=== PATIENT | female | born 1980 | race Caucasian/White ===

== ENCOUNTER → 2017-06-28 15:56 | Outpatient (POV) | payer BC, SELFPAY | PROVIDERS: PCP Nurse Practitioner Family | DX: Z00.00 Encounter for general adult medical examination without abnormal findings (principal) ==

== ENCOUNTER → 2019-04-17 15:00 | Outpatient (POV) | payer BC, SELFPAY | DX: Z00.00 Encounter for general adult medical examination without abnormal findings (principal) ==

== ENCOUNTER → 2020-06-10 15:17 | Outpatient (CLI) | payer BC, SELFPAY ==
--- NOTE | 2020-06-10 15:17 | US_ITS ---
PROCEDURE: US TRANSVAGINAL CLINICAL INDICATION: abnormal vaginal bleeding Heavy painful bleeding with blood clots COMPARISON: No exams were available for comparison FINDINGS: The uterus is retroverted with an endometrial thickness of 8 mm. UTERUS: 6cm x 5cmx 4cm with a combined endometrial thickness of 7.7mm LEFT OVARY: [id number] with a volume of 2.9ml. RIGHT OVARY: [id number] with a volume of 9.5ml. Bilateral ovarian blood flow noted. No cul-de-sac fluid apparent. No adnexal mass evident. IMPRESSION: Retroverted uterus otherwise unremarkable pelvic ultrasound Dictated by: Corbin Cary MD 06/10/2020 18:08 Corbin Cary MD in OV 06/10/2020 18:08
== END ==
PROVIDERS: PCP Internal Medicine Adolescent Medicine; Visit Provider Nurse Practitioner Obstetrics & Gynecology
DX: N93.9 Abnormal uterine and vaginal bleeding, unspecified (principal)
CPT/HCPCS: 76830

== ENCOUNTER → 2020-07-15 15:12 | Outpatient (POV) | payer BC, SELFPAY | DX: Z00.00 Encounter for general adult medical examination without abnormal findings (principal) ==

== ENCOUNTER → 2020-07-29 10:06 | Outpatient (CLI) | payer BC, SELFPAY ==
[2020-07-29 10:36] LABS: Basophils # 0.1 K/mm3 (0-0.2); Basophils % 1.1 % (0.1-2.0); Eosinophils # 0.1 K/mm3 (0.0-0.4); Eosinophils % 1.2 % (0.1-12.0); Hematocrit 47.7 % (37.0-47.0); Hemoglobin 15.5 g/dL (12.2-16.2); Lymphocytes # 2.6 K/mm3 (0.7-4.5); Lymphocytes % 36.6 % (10-50); Mean Corpuscular HGB Conc 32.5 g/dL (31.8-35.4); Mean Corpuscular Hemoglobin 29.6 pg (27.0-31.2); Mean Corpuscular Volume 91.1 fl (81-99); Mean Platelet Volume 7.6 fl (7.4-10.4); Monocytes # 0.4 K/mm3 (0.1-1.0); Monocytes % 5.5 % (1.7-9.3); Neutrophils # 3.9 K/mm3 (1.8-7.8); Neutrophils % 55.6 % (37.0-80.0); Platelet Count 363 K/mm3 (142-424); Red Blood Count 5.24 M/mm3 (4.20-5.40); Red Cell Distribution Width 12.8 % (11.5-17.5)
[2020-07-29 11:13] LABS: Chloride 109 mmol/L (98-107); Sodium 139 mmol/L (136-145)
[2020-07-29 11:14] LABS: Potassium 4.9 mmoL/L (3.5-5.1)
[2020-07-29 11:16] LABS: Blood Urea Nitrogen 8 mg/dl (7-17); Estimated Glomerular Filt Rate 138 ml/min (>60); GFR (African American) 167 ML/MIN (>60)
[2020-07-29 11:17] LABS: Anion Gap 13.9 mEq/L (5-15); Calcium 9.2 mg/dl (8.4-10.2); Carbon Dioxide 21 mmol/L (22.0-30.0); Glucose 92 mg/dl (74-100)
[2020-07-29 11:53] LABS: Coronavirus 19 IgG Antibody Negative (Negative); Coronavirus 19 IgM Antibody Negative (Negative)
[2020-07-29 18:18] LABS: HCG Qualitative, Serum Negative (Negative)
== END ==
PROVIDERS: Visit Provider Nurse Practitioner Obstetrics & Gynecology
DX: Z01.818 Encounter for other preprocedural examination (principal); Z20.822 Contact with and (suspected) exposure to COVID-19; N39.0 Urinary tract infection, site not specified; N92.0 Excessive and frequent menstruation with regular cycle
CPT/HCPCS: 36415; 80048; 84703; 85025; 86328

== ENCOUNTER 2020-07-31 06:43 | Day surgery (SDC) | payer BC, SELFPAY ==
[2020-07-29 09:48] VITALS: BMI 33.0
[2020-07-31] VITALS (10 sets, daily range): BP systolic 112–129; BP diastolic 62–79; PULSE 73–94; RESP 14–84; TEMP 36.1–36.5; O2SAT 96–100
--- NOTE | 2020-07-31 08:53 | P.OP_ITS ---
Date of procedure: 07/31/20 Pre-op Diagnosis:: Menorrhagia Post-op Diagnosis:: Menorrhagia Procedure performed:: Hysteroscopy, dilation and curettage, NovaSure ablation Surgeon:: nErike Fung MD CRISIS CLINICIAN:: Other (Manolo Kuhn) Anesthesia: LMA Estimated blood loss (mL): 50 Clinical Note:: She is a 39-year-old lady who complains of extremely heavy periods. She has tried control pills as well as Mirena IUD. She has had a tubal ligation. After having discussed the risks and benefits she elected to have a NovaSure ablation. Operative findings:: She had an anteverted normal-appearing uterus. The uterus sounded to 8 cm. The endometrium appeared lush but otherwise normal. Operative note:: She was taken to the operating room where LMA anesthesia was found be adequate. She was prepped and draped in the normal sterile fashion in the lithotomy position. A weighted speculum was placed in the vagina and the anterior lip of the cervix was grasped with a tenaculum. The cervix was then dilated to approximately 6 mm. I then inserted a hysteroscope into the uterine cavity and the findings were as previously dictated. I then performed a gentle curettage with a medium curette. I then sounded the uterus and determine the length of the uterus. The uterus was was found to be 8 cm long. The endometrial cavity was 6 cm long and the width was 4.4 cm. This was placed into the NovaSure device. I then inserted the NovaSure device and determine the width of the endometrial cavity. I then ran the device through its program. I further inspected the endometrial cavity and was found to be completely charred. I then injected 30 cc of 0.5% ropivacaine at the 3:00, 5:00, 7:00, and 9:00 positions of the cervix. She tolerated procedure well and was taken to the recovery room in excellent condition. All sponge and instrument counts were correct. The estimated blood loss was less than 50 cc. Condition: stable Disposition: PACU Specimens:: Endometrial curettings Complications:: None
--- NOTE | 2020-07-31 12:07 | HMH.ANESCL ---
[facility] Anesthesia Checklist - Patient Identification Patient Identification: Arm Band - Structural Data Admitted From: Home Planned Operative Procedure/s: Hysteroscopy D & C/ Novasure Consent for Planned Operative Procedure(s) Verified: Yes Verified Documents: Surgical Consent, History and Physical - Additional verifications Anesthesia Reactions: No Hx Blood Transfusions: No Blood Transfusion Reaction: No - Airway Assessment C-Spine Mobility Assessed: Yes TMJ Mobility Assessed: Yes Dentition: Good Dentition - Neurological Assessment Level of Consciousness: Awake, Alert - Anesthesia Plan Anesthesia Risk discussed: Yes Anesthesia Plan: Verified ASA Class: II Anesthesia Type: General [facility] History Medical History: Denies:: Cancer, Diabetes Mellitus Type 1, Diabetes Mellitus Type 2, Internal Pacemaker, MRSA, Seizures *Have you ever received a pneumonia vaccine?: No *Have you received a flu vaccine this season?: Yes Other Medical History: Denies: Blood Transfusion Reaction Anesthesia experience/problems:: None Other Surgeries: Yes: Other. No: Pacemaker Amputation: No Fractures: No - *Social History Smoking Status: Current every day smoker Tobacco Type: cigarettes # Packs/Day (cigarettes): 1 Alcohol Intake: never Alcohol Intake Frequency:: holidays/special occasions only Substance Use Type: denies use *Occupational Status:: employed Housing: house Household Members: spouse *Travel in the last 8 weeks: None Family Hx:: Cancer, Hypertension
--- NOTE | 2020-07-31 12:08 | HMH.ANESI ---
[facility] Anesthesia Record Part I Intake, IV Amount: 800 Estimated blood loss (mL): 50 Urine output (mL): 0 Blood Pressure: 119/68 SaO2: 97 Pulse Rate: 84 Respiratory Rate: 14 Temperature: 97.7 F Patient is:: Awake, Drowsy Stable to PACU at:: 09:00
--- NOTE | 2020-08-03 08:18 | P.PN_ITS ---
[facility] Anesthesia Record Part II Discharge Time: 09:20 Destination: Surgical Day Care (OP Surgery) PACU nurse assessment reviewed?: Yes Patient Condition:: Good Anesthesia Complications:: None Swallowing reflex intact?: Yes Cyanosis?: No Blood Pressure: 112/70 Pulse Rate: 86 Temperature: 97.4 F Mental Status: Alert & Oriented Pain level:: 0 Nausea and/or vomitting:: None Intake, IV Amount: 0
[2020-08-03 08:19] VITALS: BP 112/70; PULSE 86; TEMP 36.3
== END 2020-07-31 10:01 | disposition home or self-care (01) ==
PROVIDERS: PCP Internal Medicine Adolescent Medicine; Visit Provider Nurse Practitioner Obstetrics & Gynecology
PROC: 0U5B8ZZ Destruction of Endometrium, Via Natural or Artificial Opening Endoscopic (ICD-10-PCS; CPT 58563; principal; 2020-07-31 08:15)
DX: N92.0 Excessive and frequent menstruation with regular cycle (principal); Z72.0 Tobacco use; Z80.9 Family history of malignant neoplasm, unspecified; Z82.49 Family history of ischemic heart disease and other diseases of the circulatory system; Z88.2 Allergy status to sulfonamides
CPT/HCPCS: 58563; 96374; J2405

== ENCOUNTER 2022-02-18 13:21 | Emergency (ER) | payer BC, SELFPAY ==
[2022-02-18 13:45] VITALS: BP 143/88; PULSE 90; RESP 16; TEMP 36.7; O2SAT 98; BMI 36.6
[2022-02-18 13:55] LABS: UTC Strep Screen (Rapid) Negative (Negative)
--- NOTE | 2022-02-18 14:10 | EXP.UTC ---
Discharge Plan Disposition Patient Disposition: Home, Self-Care Condition: Good Prescriptions Prescriptions: New azithromycin [Zithromax] 250 mg tablet 250 mg PO UD DOSE PK Qty: 6 0RF Rx Instructions: Take two (2) tablets today, then one (1) tablet days #2 thru #5 benzonatate [benzonatate] 100 mg capsule 100 mg PO TIDP PRN (Reason: Cough) Qty: 30 0RF methylprednisolone 4 mg Tablets,Dose Pack 4 mg PO DIRECTED Qty: 21 0RF No Action Digestive Advantage Advanced 10 billion cell capsule PO phentermine 37.5 mg tablet 37.5 mg PO DAILY Qty: 30 0RF Rx Instructions: must administer 30 minutes before or 1-2 hours after breakfast ascorbic acid (vitamin C) 1,000 MG tablet 1,000 mg PO DAILY cholecalciferol (vitamin D3) 25 MCG tablet 5,000 mcg PO DAILY sjhlfzui-ybli-faa-folic acid 1 EACH tablet 1 each PO DAILY vitamin F76-tzzwi acid 1 EACH tablet 1 each PO DAILY Rx Instructions: PT TAKES LIQUID FORM, UNKNOWN DOSE Referrals Follow up/Referrals: Tahir Pete MD [Primary Care Provider] - See instructions Activity Restrictions/Add. Instructions Additional Instructions/Restrictions: Drink plenty of fluids. Take tylenol or ibuprofen for pain or fever. Take the medications as directed. Follow up with your regular doctor. GO TO THE ER FOR ANY WORSENING SYMPTOMS Clinical Impressions Clinical Impression: Pharyngitis, Sinusitis Stand Alone Forms Stand Alone Forms: Work/School Release Instructions Patient Instructions: Strep Throat, Sinusitis, DI for Strep Throat Discharge ED Provider[place] [facility] [place] Stated complaint: Fever, congestion, drainage, RT ear pressure, [place] Mode of Arrival: Ambulatory Source of Information: Patient Limitations: No Limitations Time Seen by Provider: 02/18/22 14:05 HEENT Symptoms (Recalled from RN notes): Yes Resp Symptoms (Recalled from RN notes): Yes Skin Symptoms (Recalled from RN notes): No MS Symptoms (Recalled from RN notes): No Functional Status (Recalled from RN notes): n/a History of Present Illness Provider Complaint: pt comes in with c/o fever, congestion/drainage, sore throat, right ear pain, sinus pressure. symptoms began monday Related Data Home Medications Medication Instructions Recorded Confirmed ascorbic acid (vitamin C) 1,000 mg 1,000 mg PO DAILY Supplement 07/31/20 08/14/20 tablet cholecalciferol (vitamin D3) 25 5,000 mcg PO DAILY Supplement 07/31/20 08/14/20 mcg (1,000 unit) tablet stjdtkfw-rbes-bfb-folic acid 18 1 each PO DAILY Supplement 07/31/20 08/14/20 mg-0.4 mg tablet vitamin B12 500 mcg-folic acid 400 1 each PO DAILY Supplement 07/31/20 08/14/20 mcg tablet L.acidoph, paracasei,B. lactis 10 cell PO 08/14/20 08/14/20 billion cell capsule (Digestive Advantage Advanced Probiotic) Previous Rx's Medication Instructions Recorded phentermine 37.5 mg tablet 37.5 mg PO DAILY wt loss #30 tabs 09/10/20 azithromycin 250 mg tablet 250 mg PO UD DOSE PK #6 tabs 02/18/22 (Zithromax) benzonatate 100 mg capsule 100 mg PO TIDP PRN Cough #30 caps 02/18/22 methylprednisolone 4 mg tablets in 4 mg PO DIRECTED #21 tabs 02/18/22 a dose pack Allergies Allergy/AdvReac Type Severity Reaction Status Date / Time Sulfa (Sulfonamide AdvReac Unknown NA-NAUSEA Verified 02/18/22 13:48 Antibiotics) Worker's Comp Is this a Worker's Comp case?: No PFSH PFSH Social History Smoking Status: Current every day smoker tobacco type: cigarettes packs per day: 1 second hand exposure: No alcohol intake: never substance use type: denies use current occupational status: employed Travel in the last 8 weeks: None household members: spouse housing: house current occupational exposures/hazards: Yes caffeine: No ROS Obtained: Yes All systems reviewed & no additional complaints
[2022-02-18 14:45] VITALS: BP 143/88; PULSE 90; RESP 16; TEMP 36.7
[2022-02-18 15:23] LABS: Adenovirus,PCR Not Detected (NotDetected); Bordetella Pertussis Not Detected (NotDetected); Chlamydophila Pneumoniae, PCR Not Detected (NotDetected); Coronavirus 19, PCR Not Detected (NotDetected); Coronavirus 229E Not Detected (NotDetected); Coronavirus NL63 Not Detected (NotDetected); Coronavirus OC43 Not Detected (NotDetected); Coronovirus HKU1,PCR Not Detected (NotDetected); Human Metapneumovirus Not Detected (NotDetected); Influenza A, PCR Not Detected (NotDetected); Influenza AH1, 2009 Not Detected (NotDetected); Influenza AH1, PCR Not Detected (NotDetected); Influenza AH3,PCR Not Detected (NotDetected); Influenza B, PCR Not Detected (NotDetected); Mycoplasma Pneumoniae, PCR Not Detected (NotDetected); Parainfluenza 1, PCR Not Detected (NotDetected); Parainfluenza 2, PCR Not Detected (NotDetected); Parainfluenza 3, PCR Not Detected (NotDetected); Respiratory Syncytial Virus Not Detected (NotDetected); Rhinovirus/Enterovirus Not Detected (NotDetected)
[2022-02-19 11:42] LABS: Parainfluenza 4, PCR Detected (NotDetected)
== END 2022-02-18 14:50 | disposition home or self-care (01) ==
PROVIDERS: Emergency Provider Nurse Practitioner Family; PCP Internal Medicine Adolescent Medicine
DX: J32.9 Chronic sinusitis, unspecified (principal); J02.9 Acute pharyngitis, unspecified; B34.8 Other viral infections of unspecified site
CPT/HCPCS: 87581; 87632; 87798; 87880; 99212; C9803; G0463; U0003; U0005

== ENCOUNTER 2022-12-16 10:59 | Emergency (ER) | payer BC, SELFPAY ==
[2022-12-16 11:00] VITALS: BP 131/76; PULSE 91; RESP 19; TEMP 37.3; O2SAT 99; BMI 35.0
--- NOTE | 2022-12-16 11:25 | EXP.UTC ---
Discharge Plan Disposition Patient Disposition: Home, Self-Care Condition: Good Prescriptions Prescriptions: New amoxicillin 875 mg tablet 875 mg PO BID Qty: 20 0RF fluticasone propionate [Flonase Allergy Relief] 50 mcg/actuation spray,suspension 1 - 2 spray intranasal DAILY Qty: 16 0RF Rx Instructions: administer into each nostril daily No Action Digestive Advantage Advanced 10 billion cell capsule PO phentermine 37.5 mg tablet 37.5 mg PO DAILY Qty: 30 0RF Rx Instructions: must administer 30 minutes before or 1-2 hours after breakfast ascorbic acid (vitamin C) 1,000 MG tablet 1,000 mg PO DAILY cholecalciferol (vitamin D3) 25 MCG tablet 5,000 mcg PO DAILY mrawjkzl-rdtd-rmy-folic acid 1 EACH tablet 1 each PO DAILY vitamin V30-qdkxq acid 1 EACH tablet 1 each PO DAILY Rx Instructions: PT TAKES LIQUID FORM, UNKNOWN DOSE azithromycin [Zithromax] 250 mg tablet 250 mg PO UD DOSE PK Qty: 6 0RF Rx Instructions: Take two (2) tablets today, then one (1) tablet days #2 thru #5 benzonatate [benzonatate] 100 mg capsule 100 mg PO TIDP PRN (Reason: Cough) Qty: 30 0RF methylprednisolone 4 mg Tablets,Dose Pack 4 mg PO DIRECTED Qty: 21 0RF Referrals Follow up/Referrals: Tahir Pete MD [Primary Care Provider] - See instructions Activity Restrictions/Add. Instructions Additional Instructions/Restrictions: *Monitor Temp, Over the counter Motrin or Tylenol as directed/as needed Tylenol every 4 hours and Motrin every 6 hours (as long as your family doctor has told you that you can take it) for fever or pain. and straight to ER if unable to lower temp less than 101.0 after medication given *Warm salt water gargles may help to soothe the throat *Throat Lozenges? *Warm fluids like tea with honey may help to soothe the throat? *Sleep elevated *Humidifier/Vaporizer *Flonase 2 sprays in each nostril daily but be aware that it may take 2-3 days before you notice improvement Take medication as prescribed Your throat swab was sent for culture. Those results are typically sent to your primary care. Be sure to follow up in 2-3 days with your family doctor/primary care physician if no improvement so they can review those result and treat if necessary. If you don?t have a primary care doctor, I recommend you get one but in the mean time, you will have to return to a walk in clinic Follow up IMMEDIATELY for new or worsening symptoms or no Noticeable improvement over the next 48-72 hours. 911 for difficulty breathing or swallowing Clinical Impressions Clinical Impression: Pharyngitis Qualifiers: Pharyngitis/tonsillitis etiology: unspecified etiology Qualified Code(s): J02.9 - Acute pharyngitis, unspecified Instructions Patient Instructions: Sore Throat, DI for Ear Pain-Adult Discharge ED Provider: Shannan Winter [facility] General Stated complaint: sore throat, fever, ear pain Mode of Arrival: Ambulatory Source of Information: Patient Limitations: No Limitations Time Seen by Provider: 12/16/22 11:25 Description of Symptoms (Recalled from Triage Doc. by RN): Patient complaint of fever, sore throat, aching, and left ear pain for 2 days. HEENT Symptoms (Recalled from RN notes): Yes Resp Symptoms (Recalled from RN notes): No Skin Symptoms (Recalled from RN notes): No MS Symptoms (Recalled from RN notes): No Functional Status (Recalled from RN notes): wnl History of Present Illness Provider Complaint: Patient state that for the last 2-3 days she has been having pain and pressure in her left ear, sore throat and feeling achy States that everyone in her house has strep throat right now and she thinks she may have it now too Related Data Home Medications Medication Instructions Recorded Confirmed ascorbic acid (vitamin C) 1,000 mg 1,000 mg PO DAILY Supplement 07/31/20 08/14/20 tablet cholecalcife
[2022-12-16 11:27] LABS: UTC Strep Screen (Rapid) Negative (Negative)
[2022-12-16 11:35] VITALS: BP 131/76; PULSE 91; RESP 19; TEMP 37.3; O2SAT 99
== END 2022-12-16 11:36 | disposition home or self-care (01) ==
PROVIDERS: Emergency Provider Nurse Practitioner; PCP Internal Medicine Adolescent Medicine
DX: J02.9 Acute pharyngitis, unspecified (principal); R50.9 Fever, unspecified; H92.03 Otalgia, bilateral; F17.210 Nicotine dependence, cigarettes, uncomplicated
CPT/HCPCS: 87880; 99212; 99214; G0463

== ENCOUNTER 2023-03-01 11:52 | Emergency (ER) | payer BC, SELFPAY ==
[2023-03-01 12:10] VITALS: PULSE 94; RESP 22; TEMP 37.2; O2SAT 98; BMI 37.8
[2023-03-01 12:22] VITALS: BP 0/0; PULSE 94; RESP 22; TEMP 37.2; O2SAT 98
--- NOTE | 2023-03-01 12:22 | EXP.UTC ---
Discharge Plan Disposition Patient Disposition: Home, Self-Care Condition: Good Prescriptions Prescriptions: New benzonatate 100 mg capsule 100 mg PO TID PRN (Reason: cough) Qty: 30 0RF amoxicillin-pot clavulanate 875-125 mg Tablet 1 tab PO Q12H Qty: 20 0RF fluticasone propionate [Flonase Allergy Relief] 50 mcg/actuation spray,suspension 1 spray intranasal DAILY Qty: 16 0RF Rx Instructions: administer into each nostril daily methylprednisolone [Medrol (Garo)] 4 mg tablets,dose pack See Rx Instructions .Route .COMPLEX 6 Days Qty: 21 0RF Rx Instructions: taper pack; No Action buspirone 10 mg Tablet 10 mg PO BID Referrals Follow up/Referrals: Tahir Pete MD [Primary Care Provider] - See instructions Activity Restrictions/Add. Instructions Additional Instructions/Restrictions: *Monitor Temp, Over the counter Motrin or Tylenol as directed/as needed Tylenol every 4 hours and Motrin every 6 hours (as long as your family doctor has told you that you can take it) for fever or pain. and straight to ER if unable to lower temp less than 101.0 after medication given *Warm salt water gargles may help to soothe the throat *Throat Lozenges? *Warm fluids like tea with honey may help to soothe the throat? *Sleep elevated *Humidifier/Vaporizer *Flonase 2 sprays in each nostril daily but be aware that it may take 2-3 days before you notice improvement Take medication as prescribed Follow up IMMEDIATELY for new or worsening symptoms or no Noticeable improvement over the next 48-72 hours. 911 for difficulty breathing or swallowing Clinical Impressions Clinical Impression: Sinusitis Qualifiers: Sinusitis location: unspecified location Chronicity: unspecified Qualified Code(s): J32.9 - Chronic sinusitis, unspecified Instructions Patient Instructions: DI for Sinusitis, Sinusitis Discharge ED Provider: Shannan Winter [facility] [place] General Stated complaint: cough, sore throat, congestion Mode of Arrival: Ambulatory Source of Information: Patient Limitations: No Limitations Time Seen by Provider: 03/01/23 12:22 Description of Symptoms (Recalled from Triage Doc. by RN): PATIENT C/O COUGH X 3 WEEKS, SORE THROAT, RUNNY NOSE, AND CHILLS HEENT Symptoms (Recalled from RN notes): Yes Resp Symptoms (Recalled from RN notes): Yes Skin Symptoms (Recalled from RN notes): No MS Symptoms (Recalled from RN notes): No Functional Status (Recalled from RN notes): WNL History of Present Illness Provider Complaint: Patient states that she has been having cough and nasal congestion for about 3 weeks States that it has got worse states that she is having sinus pressure, pressure behind her eyes scratchy throat and chills thinks she may have a bad sinus infection Related Data Home Medications Medication Instructions Recorded Confirmed buspirone 10 mg tablet 10 mg PO BID 03/01/23 03/01/23 Previous Rx's Medication Instructions Recorded amoxicillin 875 mg-potassium 1 tab PO Q12H #20 tabs 03/01/23 clavulanate 125 mg tablet benzonatate 100 mg capsule 100 mg PO TID PRN cough #30 caps 03/01/23 fluticasone propionate 50 1 spray intranasal DAILY #16 grams 03/01/23 mcg/actuation nasal spray,suspension (Flonase Allergy Relief) methylprednisolone 4 mg tablets in See Rx Instructions .Route 03/01/23 a dose pack (Medrol (Garo)) .COMPLEX 6 days #21 tabs Allergies Allergy/AdvReac Type Severity Reaction Status Date / Time Sulfa (Sulfonamide AdvReac Unknown NA-NAUSEA Verified 02/18/22 13:48 Antibiotics) Worker's Comp Is this a Worker's Comp case?: No [facility] Disclaimer: The information contained in this section may have been updated after the patient was seen, as this information can be updated by other users. Medical History (Updated 03/01/23 @ 12:25 by Shannan Winter APRN) Anxiety Surgical History (Updated 03/01/23 @ 12:22 by Abeba Gutierrez
== END 2023-03-01 12:30 | disposition home or self-care (01) ==
PROVIDERS: Emergency Provider Nurse Practitioner; PCP Internal Medicine Adolescent Medicine
DX: J01.90 Acute sinusitis, unspecified (principal); R07.0 Pain in throat; R05.9 Cough, unspecified; R09.81 Nasal congestion; R68.83 Chills (without fever); F17.210 Nicotine dependence, cigarettes, uncomplicated
CPT/HCPCS: 99212; 99214; G0463

== ENCOUNTER 2023-07-18 11:27 | Outpatient (CLI) | payer BC, SELFPAY ==
--- NOTE | 2023-07-18 11:30 | XR_ITS ---
FINAL REPORT CLINICAL HISTORY: foot pain COMPARISON: None FINDINGS: AP, oblique and lateral views of the left foot were obtained. There is no prior exam for comparison. There is no acute fracture or dislocation. The joint spaces are preserved. Soft tissues are normal. Note is made of a small accessory navicular. IMPRESSION: No acute osseous abnormality of the left foot. Reviewed, Interpreted and Dictated by Syd Castaneda MD Transcribed by Yaneli Rios Authenticated and [facility]
== END 2023-07-18 23:59 ==
LOC: RAD 11:28
PROVIDERS: PCP Internal Medicine Adolescent Medicine; Visit Provider Podiatrist
DX: M79.672 Pain in left foot (principal); D49.2 Neoplasm of unspecified behavior of bone, soft tissue, and skin; D18.01 Hemangioma of skin and subcutaneous tissue
CPT/HCPCS: 73630

== ENCOUNTER 2023-08-03 08:24 | Outpatient (CLI) | payer BC, SELFPAY ==
--- NOTE | 2023-08-03 08:24 | MR_ITS ---
FINAL REPORT CLINICAL HISTORY: Evaluate soft tissue abnormality inferior to medial mallelous. COMPARISON: None FINDINGS: Multiplanar MR imaging of the left foot was performed with and without contrast. There are mild degenerative changes in the subtalar joint. There is no evidence of fracture or marrow edema. No bony mass is identified. The flexor and extensor tendons are intact. There is a cystic mass without enhancement along the dorsal 3rd and 4th metatarsals compatible with ganglion cyst. Lesion measures 34 mm in length by up to 8 mm in diameter. There is increased T2 signal in the subcutaneous tissues along the anterior inferior portion of the medial malleolus corresponding to the palpable abnormality. This is associated with enhancement without masslike features. The area of enhancement measures approximately 24 mm in diameter by 6 mm in thickness and is more suggestive of inflammatory change. The intrinsic muscles are unremarkable. IMPRESSION: Ganglion cysts along the lateral dorsal midfoot. Nonspecific signal changes in the subcutaneous tissues with enhancement near the medial malleolus at the site of palpable abnormality favored to represent inflammatory change. Repeat MRI with contrast if symptoms persist or progress. Reviewed, Interpreted and Dictated by Alejandro Sheppard MD Transcribed by Funmilayo Oneill Authenticated and [facility]
[2023-08-03] MEDS: SODIUM CHLORIDE 0.9% 10ML SYR (RAD ONLY) 10 ML IV (09:50)
[2023-08-03] MEDS: GADOTERIDOL INJ 17ML SYRINGE 18 ML IV (09:51)
== END 2023-08-03 23:59 | disposition home or self-care (01) ==
LOC: RAD 08:24
PROVIDERS: PCP Internal Medicine Adolescent Medicine; Visit Provider Podiatrist
DX: M79.672 Pain in left foot (principal); D18.01 Hemangioma of skin and subcutaneous tissue; D49.2 Neoplasm of unspecified behavior of bone, soft tissue, and skin
CPT/HCPCS: 73720; A9576

== ENCOUNTER 2023-08-14 10:23 | Outpatient (CLI) | payer BC, SELFPAY ==
--- NOTE | 2023-08-14 10:50 | XR_ITS ---
FINAL REPORT CLINICAL HISTORY: PAST NICOTINE USE denies heart/lung conditions FINDINGS: 2 views of the chest were obtained . The heart is normal in size. The mediastinum is within normal limits. The lungs are clear. There is no pneumothorax. Osseous structures are unremarkable. IMPRESSION: No acute cardiopulmonary process. Reviewed, Interpreted and Dictated by Marcos Souza III, MD Transcribed by Litzy Cuellar Authenticated and . [facility]
--- NOTE | 2023-08-14 11:05 | ECG_ITS ---
APPROVED REPORT Exam: Resting ECG HR:65 bpm ECG Measurements Heart Rate 65 AXES LA 161 P 63 QRSd 86 QRS 27 QT 386 T 38 QTc 397 Conclusion SINUS RHYTHM WITH SINUS ARRHYTHMIA LOW QRS VOLTAGE IN PRECORDIAL LEADS [QRS DEFLECTION < 1.0 mV IN CHEST LEADS] BORDERLINE ECG UNCONFIRMED REPORT Electronically signed by : Tahir Pete MD 08/18/2023 12:26:36
[2023-08-14 11:59] LABS: Chloride 109 mmol/L (98-107)
[2023-08-14 12:00] LABS: Potassium 4.4 mmoL/L (3.5-5.1); Sodium 138 mmol/L (136-145)
[2023-08-14 12:02] LABS: Alanine Aminotransferase 31 U/L (12-78); Aspartate Amino Transferase 27 U/L (14-36); Blood Urea Nitrogen 8 mg/dl (7-17); Estimated Glomerular Filt Rate 110 ml/min (>60); GFR (African American) 133 ML/MIN (>60)
[2023-08-14 12:03] LABS: Albumin Level 4.1 g/dl (3.5-5.0); Albumin/Globulin Ratio 1.6 (1.1-1.8); Alkaline Phosphatase 87 U/L (38-126); Anion Gap 11.4 mEq/L (5-15); Bilirubin,Total 0.4 mg/dl (0.2-1.3); Calcium 9.3 mg/dl (8.4-10.2); Carbon Dioxide 22 mmol/L (22.0-30.0); Globulin 2.5 g/dL (1.3-3.2); Glucose 94 mg/dl (74-100); Total Protein,Serum 6.6 g/dl (6.3-8.2)
[2023-08-14 12:15] LABS: C-Reactive Protein 4.1 mg/L (0-4)
[2023-08-14 14:13] LABS: Basophils # 0.1 K/mm3 (0-0.2); Basophils % 1.3 % (0.1-2.0); Eosinophils % 0.6 % (0.1-12.0); Hematocrit 42.4 % (37.0-47.0); Lymphocytes % 34.6 % (10-50); Mean Corpuscular Hemoglobin 29.3 pg (27.0-31.2); Mean Corpuscular Volume 88.7 fl (81-99); Mean Platelet Volume 8.4 fl (7.4-10.4); Monocytes # 0.3 K/mm3 (0.1-1.0); Monocytes % 4.5 % (1.7-9.3); Neutrophils # 3.3 K/mm3 (1.8-7.8); Platelet Count 331 K/mm3 (142-424); Red Blood Count 4.78 M/mm3 (4.20-5.40); Red Cell Distribution Width 13.5 % (11.5-17.5); White Blood Count 5.7 K/mm3 (4.8-10.8)
== END 2023-08-14 23:59 | disposition home or self-care (01) ==
LOC: LAB 10:24
PROVIDERS: PCP Internal Medicine Adolescent Medicine; Visit Provider Podiatrist
DX: Z01.818 Encounter for other preprocedural examination (principal)
CPT/HCPCS: 36415; 71046; 80053; 85025; 86140; 93005

== ENCOUNTER 2023-09-28 11:13 | Day surgery (SDC) | payer BC, SELFPAY ==
[2023-09-26 13:20] VITALS: BMI 37.2
[2023-09-28] VITALS (10 sets, daily range): BP systolic 100–124; BP diastolic 61–81; PULSE 68–90; RESP 16–24; TEMP 36.2–36.6; O2SAT 95–98
[2023-09-28] MEDS: LACTATED RINGERS 1000ML 1,000 ML 25 ML IV (11:42)
[2023-09-28 11:43] LABS: Urine Pregnancy, HCG Qual. Negative (Negative)
--- NOTE | 2023-09-28 13:32 | P.PNANES_ITS ---
[facility] Disclaimer: The information contained in this section may have been updated after the patient was seen, as this information can be updated by other users. Medical History Anxiety Surgical History History of appendectomy Family History Other No significant family history Social History Smoking Status: Current every day smoker tobacco type: cigarettes packs per day: 1 second hand exposure: No alcohol intake: never substance use type: denies use current occupational status: employed Travel in the last 8 weeks: None household members: spouse housing: house current occupational exposures/hazards: Yes caffeine: No [facility] Anesthesia Checklist Patient Identification Patient Identification: Arm Band, Family and Verbal (Name & ) Structural Data Admitted From: Home Planned Operative Procedure/s: Excision of soft tissue mass LT foot; ganglion cyst removal Verified Documents: Surgical Consent and History and Physical NPO Status Verified Time NPO: 23:30 Chart Verification Results Verified: CBC, BMP and HCG Additional verifications Patient : No Anesthesia Reactions: No Hx Blood Transfusions: No Blood Transfusion Reaction: No Cardiovascular Assessment Heart Sounds: S1 & S2 Pulse Rhythm: Irregular Peripheral Edema: No Airway Assessment Mallampati Score:: Class II C-Spine Mobility Assessed: Yes (FROM) TMJ Mobility Assessed: Yes Dentition: Good Dentition (Nothing loose per pt.) Neurological Assessment Level of Consciousness: Awake, Alert, Appropriate and Follows Commands Hx Seizures: No Numbness or tingling in extremities: No Anesthesia Plan Anesthesia Risk discussed: Yes Anesthesia Plan: Verified ASA Class: II Anesthesia Type: General
[2023-09-28] MEDS: CEFAZOLIN SODIUM 2 GM in 0.9 % SODIUM CHLORIDE 100 ML IV (14:00)
[2023-09-28] MEDS: BUPIVACAINE 0.5% 10ML VIAL 50 MG ×2 (14:19→14:25)
--- NOTE | 2023-09-28 15:09 | EXP.ANES.I ---
[facility] Anesthesia Record Part I Anesthesia Record I Intake, IV Amount: 800 Hydration: Adequate Estimated blood loss (mL): 5 Urine output (mL): 0 Blood Pressure: 108/61 SaO2: 97 Pulse Rate: 90 Airway Patency: Patent Respiratory Rate: 19 Temperature: 97.1 F Patient is:: Drowsy Stable to PACU at:: 15:05
--- NOTE | 2023-09-28 15:19 | P.OP_ITS ---
Date of procedure: 09/28/23 Pre-op Diagnosis:: Left medial ankle lipoma Left medial foot soft tissue mass Left foot ganglion cyst Post-op Diagnosis:: Same Procedure performed:: Left medial ankle lipoma excision Left medial soft tissue mass excision Left foot lipoma excision Left foot ganglion cyst excision Application of graft Surgeon:: Reina Doshi DPM PAPER PATTERN INSPECTOR:: Maris Coon Anesthesia: local (20cc 0.5% marcaine plain) and LMA Estimated blood loss (mL): 10 Operative findings:: There was some soft tissue irregularity noted to the dorsal medial foot where previous hemangioma was noted. It had previously fallen off and was not noted today. There was some abnormal thickening of the skin over where that area had been about the 0.3 cm round. There was a soft tissue lipoma noted to the medial malleolus about 2 cm round. The dorsal foot between the third and fourth metatarsal head soft tissue mass noted. Upon dissection there was noted to be a small 1 cm round lipoma. Under the lipoma deep to the extensor tendons there was a ganglion cyst noted. No purulence malodor or signs of infection noted. Operative note:: On this date and time patient was deemed an appropriate surgical candidate. With informed consent signed, the patient was taken to the operating theater. The patient was positioned supine. LMA anesthesia was induced. Tourniquet was applied to mid-calf and set at 225 mmHg. Pre-op left ankle block given with 10 cc 0.5% marcaine plain. IV Ancef given. The left extremity was prepped and draped in normal sterile fashion. Left medial ankle lipoma excision: The limb was exsanguinated and the tourniquet was inflated. Attention was directed to the medial ankle where a 2 cm round lipoma was noted. Layered soft tissue dissection with care to maintain surgical hemostasis and safely track neurovascular structures. Lipoma was identified in the subcutaneous tissue layer. It was excised in total and sent to pathology as specimen. No signs of infection. No nerve impingement appreciated. Wound was flushed with saline. Left medial soft tissue mass/skin lesion excision: Next attention was directed to the medial foot where a prior hemangioma was noted. The mass had previously fallen off. There was abnormal thickening of the area measuring about 0.3cm round. Ellipse incision made around the abnormal skin and full-thickness dissection performed. The skin lesion was resected and excised and sent to pathology as specimen. Left soft tissue mass, lipoma and ganglion cyst excision: Attention was directed to the dorsal lateral left foot where a visible and palpable soft tissue mass was noted. A lazy S incision was mapped out over the mass. Dissection was carried through the skin through subcutaneous tissue with care taken to maintain surgical hemostasis and safely retract neurovascular structures. The lipoma was visible at the level of the subcutaneous tissue. It was excised and sent to pathology as a specimen. Next extensor tendons were identified. The ganglion c yst was visible overlying the deep fascia. Using a mixture of sharp and blunt and dissection technique the mass was isolated. The mass was clear and jellylike in its appearance. Dissection was carried down between the third and fourth metatarsals where there was more soft tissue jelly mass noted. The cyst was removed and sent as a specimen. The wound was flushed with copious amounts of normal sterile saline. Application of amniotic graft: Due to the extensive soft tissue masses and dissection, post excision subcutaneous layer and skin was very thin. A piece of amniotic tissue was laid over the medial malleolus and dorsal lateral subcutaneous tissue in order to prevent adhesions and scarring of the deep fascia to the thin skin. The tourniquet was deflated and immediate anemic respon se was noted to the digits. Bleeding controlled. Vessels ligated with electrocautery and tied as necessary.The wounds once again flushed with copious amounts of normal sterile saline. No signs of infection. Vicryl was used to close deep tissue and subcutaneous tissue and a running fashion. 4-0 Monocryl was then used to reapproximate the skin in a running subcuticular fashion. The wounds were cleansed. 10 cc 0.5% marcaine plain was injected at the end of the case around the incision and in an ankle block. Dermabond Prineo applied to the incisions. Xeroform, dry sterile dressing was then applied to the left foot. The patient was awoken from anesthesia and transferred to recovery with vital signs stable and neurovascular status intact. She appeared to tolerate procedure and anesthesia without complication. Materials: [employer] Amnio graft x 1 (4x3 cm) Discharge/Plan: Ok to discharge home today when vss. Patient is to maintain dressing clean dry and intact. Elevate on two pillows. Partial weight bearing to the left lower extremity with fracture boot and DME assistance (crutches, walker, rolling knee scooter). Follow up in one week as previously scheduled for incision check and dressing change. Tourniquet time (min): 33 Condition: stable Disposition: same day Specimens:: Left medial ankle lipoma Left medial soft tissue mass Left foot lipoma Left foot ganglion cyst Complications:: None
[2023-09-28] MEDS: HYDROMORPHONE 2MG/ML SYRINGE 0.5 MG IV (15:32)
[2023-09-29 14:39] VITALS: BP 117/72; PULSE 68; RESP 16; TEMP 35.5; O2SAT 96
--- NOTE | 2023-09-29 14:39 | P.PNANES_ITS ---
[facility] Anesthesia Record Part II Anesthesia Record Part II Discharge Time: 15:40 Destination: Surgical Day Care (OP Surgery) PACU nurse assessment reviewed?: Yes Patient Condition:: Good Anesthesia Complications:: None Swallowing reflex intact?: Yes Airway Patency: Patent Cyanosis?: No Blood Pressure: 117/72 SaO2: 96 Respiratory Rate: 16 Pulse Rate: 68 Temperature: 96 F Mental Status: Alert & Oriented Pain level:: 4 Nausea and/or vomitting:: None Intake, IV Amount: 0 Hydration: Adequate
== END 2023-09-28 16:11 | disposition home or self-care (01) ==
LOC: OR 11:14
PROVIDERS: PCP Internal Medicine Adolescent Medicine; Visit Provider Podiatrist
PROC: (CPT 11422; principal; 2023-09-28 12:30)
DX: M67.472 Ganglion, left ankle and foot (principal); D18.01 Hemangioma of skin and subcutaneous tissue; M79.672 Pain in left foot; D17.39 Benign lipomatous neoplasm of skin and subcutaneous tissue of other sites
CPT/HCPCS: 11422; 11420; 28090; 81025; 96374; J0690; J1100; J1170; J2250; J2405; J3010; J7120

== ENCOUNTER 2024-04-17 09:26 | Outpatient (CLI) | payer BC, SELFPAY ==
--- NOTE | 2024-04-17 09:29 | US_ITS ---
PROCEDURE: US TRANSVAGINAL CLINICAL INDICATION: ABD PAIN, COMPARISON: US US TRANSVAGINAL from 06/10/2020 FINDINGS: Transvaginal sonographic images of the pelvis were obtained. UTERUS: 7.6 cm x 4.9 cmx 4.0cm anteverted with a combined endometrial thickness of 9.1mm. There is a small nabothian cyst. There appears to be a solid area within the endometrium that measures 1.7 cm x 1.2 cm x 1.4 cm. This could represent a fibroid or possibly an old collection of blood. There is a 2nd small collection of fluid in the endometrium that measures 1.0 cm x 0.6 cm x 0.5 cm. The endometrial tissue surrounding this is extremely thin. LEFT OVARY: [id number] with a volume of 6.7ml. There is a follicle in the left ovary measuring 1.7 cm x 1.3 cm x 1.2 cm. There is a 2nd smaller follicle measuring 1.1 cm. RIGHT OVARY: 2cmx [id number] with a volume of 4.5ml. There is a small follicle in the right ovary measuring 0.7 cm. Both ovaries are seen and appear normal. Doppler flow to both ovaries are seen. There is a small amount of fluid in the cul-de-sac. IMPRESSION: 1. Anteverted uterus normal in shape and size. There has been a previous endometrial ablation. There is a solid area in the fundus of the uterus on the left side that measures 1.7 cm. This could either represent collection of old blood or possibly a fibroid. There is a 2nd smaller area of fluid collection on the right side of the fundus of the uterus that measures 1.0 cm. These likely the result of an inability of blood to drain from the uterus as result of the previous ablation. 2. Both ovaries are seen and appear normal. Both of small follicles. 3. There is a small amount of fluid in the cul-de-sac. Dictated by: Enrike Fung MD 04/17/2024 14:13 Enrike Fung MD in OV 04/17/2024 14:13
--- NOTE | 2024-04-17 09:29 | US_ITS ---
FINAL REPORT TECHNIQUE: Multiple transverse and longitudinal images CLINICAL HISTORY: Abdominal pain COMPARISON: None FINDINGS: The gallbladder shows no wall thickening, distention or stone disease. No biliary ductal dilatation is appreciated. No fluid collections are seen. There is fatty infiltration of the liver. Limited portions of the right kidney are unremarkable. IMPRESSION: No evidence of cholelithiasis Fatty liver. Reviewed, Interpreted and Dictated by Alejandro Sheppard MD Transcribed by Funmilayo Oneill Authenticated and [facility]
== END 2024-04-17 23:59 | disposition home or self-care (01) ==
LOC: RAD 09:27
PROVIDERS: PCP Nurse Practitioner Family; Visit Provider Nurse Practitioner Family
DX: R10.84 Generalized abdominal pain (principal)
CPT/HCPCS: 76705; 76830

== ENCOUNTER 2024-05-15 09:44 | Outpatient (CLI) | payer BC, SELFPAY ==
[2024-05-15 10:09] LABS: Basophils % 0.6 % (0.1-2.0); Eosinophils # 0.1 K/mm3 (0.0-0.4); Eosinophils % 1.1 % (0.1-12.0); Hematocrit 42.4 % (37.0-47.0); Hemoglobin 14.2 g/dL (12.2-16.2); Lymphocytes % 31.7 % (10-50); Mean Corpuscular HGB Conc 33.5 g/dL (31.8-35.4); Mean Corpuscular Hemoglobin 28.3 pg (27.0-31.2); Mean Corpuscular Volume 84.5 fl (81-99); Monocytes # 0.4 K/mm3 (0.1-1.0); Monocytes % 6.8 % (1.7-9.3); Neutrophils # 3.8 K/mm3 (1.8-7.8); Neutrophils % 59.6 % (37.0-80.0); Platelet Count 329 K/mm3 (142-424); Red Blood Count 5.02 M/mm3 (4.20-5.40); White Blood Count 6.4 K/mm3 (4.8-10.8)
[2024-05-15 10:33] LABS: Albumin Level 4.3 g/dl (3.5-5.0); Chloride 109 mmol/L (98-107); Potassium 4.1 mmoL/L (3.5-5.1); Sodium 140 mmol/L (136-145)
[2024-05-15 10:35] LABS: Blood Urea Nitrogen 10 mg/dl (7-17)
[2024-05-15 10:36] LABS: Alanine Aminotransferase 32 U/L (12-78); Albumin/Globulin Ratio 1.8 (1.1-1.8); Alkaline Phosphatase 102 U/L (38-126); Anion Gap 13.1 mEq/L (5-15); Aspartate Amino Transferase 27 U/L (14-36); Bilirubin,Total 0.4 mg/dl (0.2-1.3); Carbon Dioxide 22 mmol/L (22.0-30.0); Cholesterol 196 mg/dl (140-200); Estimated Glomerular Filt Rate 110 ml/min (>60); GFR (African American) 133 ML/MIN (>60); Globulin 2.4 g/dL (1.3-3.2); Glucose 95 mg/dl (74-100); Total Protein,Serum 6.7 g/dl (6.3-8.2); Triglycerides 284 mg/dl (30-150); VLDL Cholesterol 57 mg/dL (0-40)
[2024-05-15 10:37] LABS: Chol/HDL Ratio 6.3 (1-3.5); HDL Cholesterol 31 mg/dl (40-60)
[2024-05-15 10:51] LABS: 25-OH Vitamin D, Total 31.7 ng/mL (30-100)
[2024-05-15 11:09] LABS: Thyroid Stimulating Hormone 1.62 uIU/mL (0.465-4.68)
[2024-05-15 11:19] LABS: Direct LDL Cholesterol 111.91 mg/dL (100-129)
[2024-05-15 11:20] LABS: Hemoglobin A1C 5.2 % (4.0-6.0)
== END 2024-05-15 23:59 | disposition home or self-care (01) ==
LOC: LAB 09:44
PROVIDERS: PCP Nurse Practitioner Family; Visit Provider Nurse Practitioner Family
DX: K76.0 Fatty (change of) liver, not elsewhere classified (principal); Z68.37 Body mass index [BMI] 37.0-37.9, adult; E66.9 Obesity, unspecified
CPT/HCPCS: 36415; 80053; 80061; 82306; 83036; 84443; 85025

== ENCOUNTER 2024-05-27 16:57 | Outpatient (CLI) | payer BC, SELFPAY ==
--- NOTE | 2024-05-27 16:58 | MM_ITS ---
PROCEDURE INFORMATION: Exam: MG Bilateral Screening 3D Mammography Exam date and time: 05/27/2024 5:03 PM Age: 43 years old Clinical indication: Screening examination. TECHNIQUE: Imaging protocol: Bilateral Screening tomosynthesis and 2D mammography including computer-aided detection (CAD) when performed. COMPARISON: No relevant prior studies available. FINDINGS: MAMMOGRAPHY: Breast composition: There are scattered areas of fibroglandular density. Mass: Circumscribed, round mass in the central retroareolar aspect of the left breast measuring 0.5 cm, located 4 cm deep to the nipple. Architectural distortion: None. Calcifications: No suspicious calcifications. Asymmetric density: None. Skin thickening: None. Axillary adenopathy: None. IMPRESSION: Patient to be recalled for spot compression views of the left breast in the CC and MLO projections, a full 90 degree lateral view, and left breast ultrasound for further evaluation of a left breast mass. ASSESSMENT: BI-RADS Category 0: Incomplete- Need Additional Imaging Evaluation.
== END 2024-05-27 23:59 | disposition home or self-care (01) ==
LOC: RAD 16:58
PROVIDERS: PCP Nurse Practitioner Family; Visit Provider Nurse Practitioner Obstetrics & Gynecology
DX: Z12.31 Encounter for screening mammogram for malignant neoplasm of breast (principal)
CPT/HCPCS: 77063; 77067

== ENCOUNTER 2024-07-03 14:15 | Outpatient (CLI) | payer BC, SELFPAY ==
--- NOTE | 2024-07-03 14:45 | MM_ITS ---
PROCEDURE INFORMATION: Exam: US Left Breast, Complete MG Left Diagnostic Breast Tomosynthesis Exam date and time: 07/03/2024 2:45 PM Age: 43 years old Clinical indication: Callback from screening for a questionable left breast mass. TECHNIQUE: Imaging protocol: Complete ultrasound of all four quadrants of the left breast and the retroareolar regions, including ultrasound of the axilla when performed. Left Diagnostic tomosynthesis and 2D mammography including computer-aided detection (CAD) when performed. Unilateral or bilateral exam. COMPARISON: MG MM DIG MAMM DX UNILAT LT CAD 07/03/2024 2:23 PM FINDINGS: MAMMOGRAPHY: Breast composition: There are scattered areas of fibroglandular density. Breast mammogram findings: In the deep central retroareolar left breast, there is a persistent circumscribed round mass measuring 0.5 cm. There is no associated distortion or suspicious calcifications. Lymph nodes are located in the lateral posterior breast. ULTRASOUND: Breast ultrasound findings: Targeted ultrasound of the left breast in the retroareolar region demonstrates no underlying sonographic finding. Scanning of the left breast is performed and demonstrates a benign area hypoechoic tissue measuring 0.3 x 0.3 x 0.4 cm in the 1 o'clock axis, 4 cm from the nipple. There is no shadowing or distortion. No axillary adenopathy. IMPRESSION: Probably benign mass in the central retroareolar left breast with no sonographic correlate. A six-month follow-up left breast diagnostic mammogram is recommended for close surveillance. ASSESSMENT: Click very
== END 2024-07-03 23:59 | disposition home or self-care (01) ==
LOC: RAD 14:16
PROVIDERS: PCP Nurse Practitioner Family; Visit Provider Nurse Practitioner Obstetrics & Gynecology
DX: R92.8 Other abnormal and inconclusive findings on diagnostic imaging of breast (principal)
CPT/HCPCS: 76641; 77061; 77065; G0279

== ENCOUNTER 2024-07-16 11:44 | Outpatient (CLI) | payer BC, SELFPAY ==
--- NOTE | 2024-07-16 12:20 | ECG_ITS ---
APPROVED REPORT Exam: Resting ECG HR:86 bpm ECG Measurements Heart Rate 86 AXES MT 157 P 43 QRSd 74 QRS -23 QT 356 T 18 QTc 399 Conclusion SINUS RHYTHM WITH SINUS ARRHYTHMIA BORDERLINE LEFT AXIS DEVIATION [QRS AXIS < -20] LOW QRS VOLTAGE IN PRECORDIAL LEADS [QRS DEFLECTION < 1.0 mV IN CHEST LEADS] PATTERN CONSISTENT WITH PULMONARY DISEASE ABNORMAL ECG UNCONFIRMED REPORT Electronically signed by : Tahir Pete MD 07/17/2024 08:01:34
[2024-07-16 12:37] VITALS: BMI 36.8
[2024-07-16 12:39] LABS: Basophils % 0.5 % (0.1-2.0); Eosinophils % 0.5 % (0.1-12.0); Hematocrit 40.7 % (37.0-47.0); Hemoglobin 13.3 g/dL (12.2-16.2); Lymphocytes # 2.1 K/mm3 (0.7-4.5); Lymphocytes % 25.9 % (10-50); Mean Corpuscular HGB Conc 32.7 g/dL (31.8-35.4); Mean Corpuscular Hemoglobin 28.5 pg (27.0-31.2); Mean Corpuscular Volume 87.3 fl (81-99); Mean Platelet Volume 9.4 fl (7.4-10.4); Monocytes # 0.5 K/mm3 (0.1-1.0); Monocytes % 5.7 % (1.7-9.3); Neutrophils # 5.5 K/mm3 (1.8-7.8); Nucleated Red Blood Cells # 0 10^3/uL; Nucleated Red Blood Cells % 0 %; Platelet Count 374 K/mm3 (142-424); Red Blood Count 4.66 M/mm3 (4.20-5.40); Red Cell Distribution Width 13.6 % (11.5-17.5); White Blood Count 8.3 K/mm3 (4.8-10.8)
[2024-07-16 12:44] LABS: Chloride 106 mmol/L (98-107)
[2024-07-16 12:45] LABS: Albumin Level 4.3 g/dl (3.5-5.0); Potassium 4.2 mmoL/L (3.5-5.1); Sodium 139 mmol/L (136-145)
[2024-07-16 12:47] LABS: Blood Urea Nitrogen 10 mg/dl (7-17); Creatinine Clearance Estimated 171 mL/min (50-200); Estimated Glomerular Filt Rate 110 ml/min (>60); GFR (African American) 133 ML/MIN (>60)
[2024-07-16 12:48] LABS: Alanine Aminotransferase 151 U/L (12-78); Albumin/Globulin Ratio 1.4 (1.1-1.8); Alkaline Phosphatase 97 U/L (38-126); Anion Gap 13.2 mEq/L (5-15); Aspartate Amino Transferase 103 U/L (14-36); Bilirubin,Total 0.4 mg/dl (0.2-1.3); Calcium 8.7 mg/dl (8.4-10.2); Carbon Dioxide 24 mmol/L (22.0-30.0); Globulin 3.1 g/dL (1.3-3.2); Glucose 92 mg/dl (74-100); Total Protein,Serum 7.4 g/dl (6.3-8.2)
[2024-07-16 13:22] LABS: HCG Qualitative, Serum Negative (Negative)
== END 2024-07-16 23:59 | disposition home or self-care (01) ==
LOC: PREOP 11:45
PROVIDERS: PCP Internal Medicine Adolescent Medicine; Visit Provider Nurse Practitioner Obstetrics & Gynecology
DX: Z01.810 Encounter for preprocedural cardiovascular examination (principal); Z01.812 Encounter for preprocedural laboratory examination; I49.8 Other specified cardiac arrhythmias; J98.4 Other disorders of lung; R94.31 Abnormal electrocardiogram [ECG] [EKG]
CPT/HCPCS: 36415; 80053; 84703; 85025; 86850; 93005

== ENCOUNTER 2024-08-24 10:22 | Outpatient (CLI) | payer BC, SELFPAY ==
[2024-08-24 11:47] LABS: Basophils # 0.1 K/mm3 (0-0.2); Basophils % 1.2 % (0.1-2.0); Eosinophils # 0.1 Kmm3 (0.0-0.4); Eosinophils % 0.8 % (0.1-12.0); Hematocrit 44.3 % (37.0-47.0); Hemoglobin 14.7 g/dL (12.2-16.2); Immature Granulocytes # 0.02 10^3uL; Immature Granulocytes % 0.3 %; Lymphocytes # 2.2 K/mm3 (0.7-4.5); Lymphocytes % 36.7 % (10-50); Mean Corpuscular HGB Conc 33.2 g/dL (31.8-35.4); Mean Corpuscular Hemoglobin 29.2 pg (27.0-31.2); Mean Corpuscular Volume 87.9 fl (81-99); Mean Platelet Volume 10.4 fl (7.4-10.4); Monocytes # 0.4 K/mm3 (0.1-1.0); Monocytes % 6.3 % (1.7-9.3); Neutrophils # 3.3 K/mm3 (1.8-7.8); Neutrophils % 54.7 % (37.0-80.0); Nucleated Red Blood Cells # 0 10^3/uL; Nucleated Red Blood Cells % 0 %; Platelet Count 385 K/mm3 (142-424); Red Blood Count 5.04 M/mm3 (4.20-5.40); Red Cell Distribution Width 12.8 % (11.5-17.5); Red Cell Distribution Width-SD 41.1 fL
[2024-08-24 12:07] LABS: Albumin Level 4.2 g/dl (3.5-5.0); Chloride 113 mmol/L (98-107); Potassium 4.7 mmoL/L (3.5-5.1); Sodium 139 mmol/L (136-145)
[2024-08-24 12:10] LABS: Alanine Aminotransferase 23 U/L (12-78); Albumin/Globulin Ratio 1.8 (1.1-1.8); Alkaline Phosphatase 88 U/L (38-126); Anion Gap 8.7 mEq/L (5-15); Aspartate Amino Transferase 22 U/L (14-36); Bilirubin,Total 0.4 mg/dl (0.2-1.3); Blood Urea Nitrogen 11 mg/dl (7-17); Calcium 9.2 mg/dl (8.4-10.2); Carbon Dioxide 22 mmol/L (22.0-30.0); Estimated Glomerular Filt Rate 92 ml/min (>60); GFR (African American) 111 ML/MIN (>60); Globulin 2.4 g/dL (1.3-3.2); Glucose 97 mg/dl (74-100); Total Protein,Serum 6.6 g/dl (6.3-8.2)
[2024-08-25 10:42] LABS: HBsAg Screen Negative (Negative); HCV Ab Non Reactive (Non Reactive); Hep A Ab, IGM Negative (Negative); Hep B Core Ab, IgM Negative (Negative)
[2024-08-28 09:25] LABS: ALT (SGPT) P5P 21 IU/L (0-40); AST (SGOT) P5P 16 IU/L (0-40); Alpha 2-Macroglobulins, Qn 141 mg/dL (110-276); Apolipoprotein A-1 131 mg/dL (116-209); Bilirubin, Total 0.1 mg/dL (0.0-1.2); Cholesterol, Total 219 mg/dL (100-199); Fibrosis Score 0.02 (0.00-0.21); GGT 19 IU/L (0-60); Glucose 93 mg/dL (70-99); Haptoglobin 189 mg/dL (42-296); NASH Score 0.12 (0.00-0.25); Steatosis Score 0.56 (0.00-0.40); Triglycerides 207 mg/dL (0-149)
== END 2024-08-24 23:59 | disposition home or self-care (01) ==
LOC: LAB 10:23
PROVIDERS: PCP Internal Medicine Adolescent Medicine; Visit Provider Nurse Practitioner Family
DX: R79.89 Other specified abnormal findings of blood chemistry (principal)
CPT/HCPCS: 36415; 80053; 80074; 82172; 82247; 82465; 82947; 82977; 83010; 83883; 84450; 84460; 84478; 85025; 86803

== ENCOUNTER 2024-11-15 11:01 | Outpatient (CLI) | payer BC, SELFPAY ==
--- OUTSIDE RECORDS SUMMARY | 2024-11-15 11:03 | XMS_ITS | Clinical Summary ---
Author Organization [facility] Address [address] [place] [address] Phone Care Team Providers Care Salvage Mechanic Name Role Phone Tahir Pete MD Primary Care Provider [phone] Allergies Active Allergy Reactions Criticality Noted Date Comments Sulfa (Sulfonamide Antibiotics) 03/05 Medications UNABLE TO FIND 1 Tablet. Med Name: Generic probiotic Active acetaminophen 325 mg Oral Tab Take 2 Tablets by mouth every 4 hours as needed for Pain. 30 Tablet 1 2 Active ibuprofen (ADVIL;MOTRIN) 800 mg Oral Tablet Take 1 Tablet by mouth every 8 hours as needed for Pain. 30 Tablet 1 2 Active docusate sodium (COLACE) 100 mg Oral Capsule Take by mouth daily. Active Active Problems Problem Noted Date Diagnosed Date Acute appendicitis with loca lized peritonitis, without perforation, abscess, or gangrene 09/20/2021 Immunizations Immunization Administration Dates Next Due Tdap 10/02/2011 Surgical History Surgery Date Site/Laterality Comments LAPAROSCOPIC APPENDECTOMY 09/20/2021 Abdomen/N/A LAPAROSCOPIC APPENDECTOMY ; Surgeon: Mesfin Bingham MD; Location: [facility]; Service: General Social History Tobacco Use Types Packs/Day Years Used Date Smoking Tobacco: Former Cigarettes Q uit: 12/01/2020 Smokeless Tobacco: Never Comments No Sex and Gender Information Value Date Recorded Sex Assigned at Not on file Legal Sex Female 8:40 AM EDT Gender Identity Not on file Sexual Orientation Not on file Obstetrics History Last Filed Vital Signs Vital Sign Reading Time Taken Comments Blood Pressure 116/68 10/14/2021 9:13 AM EDT Pulse 73 10/14/2021 9:13 AM EDT Temperature 35.8 C (96.4 F) 10/14/2021 9:13 AM EDT Respiratory Rate 20 10/14/2021 9:13 AM EDT Oxygen Saturation 100% 09/20/2021 4:39 PM EDT Inhaled Oxygen Concentration - - Weight 90.3 kg (199 lb) 10/14/2021 9:13 AM EDT Height 154.9 cm (5' 1 ) 10/14/2021 9:13 AM EDT Body Mass Index 37.6 10/14/2021 9:13 AM EDT Plan of Treatment Health Maintenance Due Date Last Done Comments Annual Wellness Exam 1984 Hepatitis B Vaccine (1 of 3 - 19+ 3-dose series) 2000 Cervical Cancer Screening 2002 Pap Smear 2002 HPV/Pap Cotest 10/07/2011 Breast Cancer Screening 2021 COVID-19 Vaccine ( - 2023-2 5 season) 2023 Influenza Vaccine (#1) 2024 0, 02/01/2018 DTaP/TDaP/Td (3 - Td or Tdap) 08/24/2026, 10/02/2011 Meningococcal B Vaccine Aged Out No l onger eligible based on patient's age to complete this topic Pneumococcal Vaccine 0-49 Aged Out No longer eligible based on patient's age to complete this topic Insurance , [place] [id number] [employer]IVIA PPO OLIVIA PPO Care Teams Salvage Mechanic Relationship Specialty Start Date End Date Tahir Pete MD [address] [place] [id number] PCP - General 10/01/09
--- NOTE | 2024-11-15 11:04 | XR_ITS ---
FINAL REPORT CLINICAL HISTORY: PAIN,,lat side of foot COMPARISON: None FINDINGS: Three views of the left foot show a transverse nondisplaced fracture of the 5th metatarsal base. The joint spaces appear normal. IMPRESSION: 5th metatarsal base fracture Reviewed, Interpreted and Dictated by Alejandro Sheppard MD Transcribed by Funmilayo Oneill Authenticated and [facility]
== END 2024-11-15 23:59 | disposition home or self-care (01) ==
LOC: RAD 11:01
PROVIDERS: PCP Internal Medicine Adolescent Medicine; Visit Provider Nurse Practitioner Family
DX: S92.355A Nondisplaced fracture of fifth metatarsal bone, left foot, initial encounter for closed fracture (principal)
CPT/HCPCS: 73630

== ENCOUNTER 2024-11-15 11:14 | Outpatient (RCR) | payer BC, SELFPAY | END 2024-11-15 23:59 | disposition home or self-care (01) | LOC: PT 11:14 | PROVIDERS: Visit Provider Nurse Practitioner Family | DX: G89.11 Acute pain due to trauma (principal); M79.672 Pain in left foot | CPT/HCPCS: 97760 ==

== ENCOUNTER 2024-12-05 08:59 | Outpatient (CLI) | payer BC, SELFPAY ==
--- NOTE | 2024-12-05 09:08 | XR_ITS ---
FINAL REPORT CLINICAL HISTORY: Evaluate 5th metatarsal fracture FINDINGS: Left foot Three views were obtained. There is an acute, nondisplaced transverse fracture through the base of the fifth metatarsal. IMPRESSION: Fracture as above. Reviewed, Interpreted and Dictated by Syd Castaneda MD Transcribed by Trudy Toribio Authenticated and [facility]
== END 2024-12-05 23:59 | disposition home or self-care (01) ==
LOC: RAD 09:01
PROVIDERS: PCP Internal Medicine Adolescent Medicine; Visit Provider Podiatrist
DX: S92.355A Nondisplaced fracture of fifth metatarsal bone, left foot, initial encounter for closed fracture (principal)
CPT/HCPCS: 73630

== ENCOUNTER 2025-01-01 08:21 | Outpatient (CLI) | payer BC, SELFPAY ==
--- NOTE | 2025-01-01 08:25 | XR_ITS ---
FINAL REPORT CLINICAL HISTORY: Evaluation of left 5th toe fracture fx in november COMPARISON: 12/05/2024 FINDINGS: LEFT FOOT Three views were obtained. The fracture line at the base of the fifth metatarsal is less evident on today's exam. Callus formation is identified. IMPRESSION: Healing fracture as above. Reviewed, Interpreted and Dictated by Syd Castaneda MD Transcribed by Trudy Toribio Authenticated and [facility]
--- OUTSIDE RECORDS SUMMARY | 2025-01-01 08:31 | XMS_ITS | Clinical Summary ---
Author Organization [facility] Address [address] [place] [address] Phone Care Team Providers Care Cellophane Bath Mixer Name Role Phone Tahir Pete MD Primary Care Provider Allergies Active Allergy Reactions Criticality Noted Date [...] on file Sexual Orientation Not on file Last Filed Vital Signs Vital Sign Reading [...] COVID-19 Vaccine ( - 2023-2 5 season) 2024 Influenza Vaccine (#1) 2024 0, 02/01/2018 DTaP/TDaP/Td (3 - Td or Tdap) 08/24/2026, 10/02/2011 Meningococcal B Vaccine Aged Out No l onger eligible based on patient's age to complete this topic Pneumococcal Vaccine 0-49 Aged Out No longer eligible based on patient's age to complete this topic Insurance [employer] PPO OLIVIA PPO Care Teams Cellophane Bath Mixer Relationship Specialty Start Date End Date Tahir Pete MD [address] [place] [phone] PCP - General 10/01/09
== END 2025-01-01 23:59 | disposition home or self-care (01) ==
LOC: RAD 08:22
PROVIDERS: PCP Internal Medicine Adolescent Medicine; Visit Provider Podiatrist
DX: S92.355D Nondisplaced fracture of fifth metatarsal bone, left foot, subsequent encounter for fracture with routine healing (principal); X58.XXXD Exposure to other specified factors, subsequent encounter
CPT/HCPCS: 73630

== ENCOUNTER 2025-01-15 12:49 | Outpatient (CLI) | payer BC, SELFPAY ==
[2025-01-15 08:57] VITALS: BMI 37.0
--- OUTSIDE RECORDS SUMMARY | 2025-01-15 12:53 | XMS_ITS | Clinical Summary ---
Author Organization [facility] Address [address] [place] [address] Phone Care Team Providers Care Bosom Presser Name Role Phone Tahir Pete MD Primary [...] Insurance OLIVIA PPO OLIVIA PPO Care Teams Bosom Presser Relationship Specialty Start Date End Date Tahir Pete MD [address] [place] [phone] PCP - General 10/01/09
--- NOTE | 2025-01-15 13:18 | ECG_ITS ---
APPROVED REPORT Exam: Resting ECG HR:84 bpm ECG Measurements Heart Rate 84 AXES IN 155 P 60 QRSd 84 QRS 13 QT 374 T 43 QTc 415 Conclusion SINUS RHYTHM WITH OCCASIONAL VENTRICULAR PREMATURE COMPLEXES BORDERLINE ECG UNCONFIRMED REPORT Electronically signed by : Tahir Pete MD 01/17/2025 21:59:46
[2025-01-15 13:35] LABS: Hematocrit 40.7 % (37.0-47.0); Hemoglobin 13.8 g/dL (12.2-16.2); Immature Granulocytes % 0.3 %; Mean Corpuscular HGB Conc 33.9 g/dL (31.8-35.4); Mean Corpuscular Hemoglobin 29.6 pg (27.0-31.2); Mean Corpuscular Volume 87.3 fl (81-99); Nucleated Red Blood Cells % 0 %; Platelet Count 339 K/mm3 (142-424); Red Blood Count 4.66 M/mm3 (4.20-5.40); Red Cell Distribution Width-SD 39.8 fL; White Blood Count 8.9 K/mm3 (4.8-10.8)
[2025-01-15 13:36] LABS: Albumin Level 4.0 g/dl (3.5-5.0); Chloride 106 mmol/L (98-107); Potassium 3.9 mmoL/L (3.5-5.1); Sodium 136 mmol/L (136-145)
[2025-01-15 13:39] LABS: Alanine Aminotransferase 19 U/L (12-78); Albumin/Globulin Ratio 1.4 (1.1-1.8); Alkaline Phosphatase 110 U/L (38-126); Anion Gap 10.9 mEq/L (5-15); Aspartate Amino Transferase 20 U/L (14-36); Bilirubin,Total 0.4 mg/dl (0.2-1.3); Blood Urea Nitrogen 7 mg/dl (7-17); Calcium 8.5 mg/dl (8.4-10.2); Carbon Dioxide 23 mmol/L (22.0-30.0); Creatinine Clearance Estimated 204 mL/min (50-200); Creatinine,Serum 0.50 mg/dl (0.52-1.04); Estimated Glomerular Filt Rate 135 ml/min (>60); GFR (African American) 163 ML/MIN (>60); Globulin 2.9 g/dL (1.3-3.2); Glucose 92 mg/dl (74-100); Total Protein,Serum 6.9 g/dl (6.3-8.2)
[2025-01-15 14:51] LABS: HCG Qualitative, Serum Negative (Negative)
== END 2025-01-15 23:59 | disposition home or self-care (01) ==
LOC: PREOP 12:50
PROVIDERS: PCP Internal Medicine Adolescent Medicine; Visit Provider Nurse Practitioner Obstetrics & Gynecology
DX: Z01.810 Encounter for preprocedural cardiovascular examination (principal); Z01.812 Encounter for preprocedural laboratory examination; I49.3 Ventricular premature depolarization; R94.31 Abnormal electrocardiogram [ECG] [EKG]
CPT/HCPCS: 80053; 84703; 85025; 93005

== ENCOUNTER 2025-01-21 10:32 | Inpatient (IN) | payer BC, SELFPAY ==
[2025-01-15 14:05] VITALS: BMI 37.0
[2025-01-21] VITALS (22 sets, daily range): BP systolic 85–117; BP diastolic 49–77; PULSE 52–97; RESP 16–22; TEMP 36.2–43; O2SAT 90–99; BMI 37.0
[2025-01-21] MEDS: LACTATED RINGERS 1000ML 1,000 ML 25 ML IV (06:44)
--- NOTE | 2025-01-21 07:03 | EXP.ANES.CKL ---
[facility] Disclaimer: The information contained in this section may have been updated after the patient was seen, as this information can be updated by other users. Medical History Fatty liver disease, nonalcoholic Anxiety Abnormal vaginal bleeding Hemangioma Vascular neoplasm Anxiety Surgical History History of appendectomy Family History Other Family history of cancer Family history of diabetes mellitus Family history of heart disease Social History (Updated 01/21/25 @ 06:26 by Pretty Francisco RN) Smoking Status: Current every day smoker tobacco type: cigarettes packs per day: 1 second hand exposure: No alcohol intake: never substance use type: denies use current occupational status: employed Travel in the last 8 weeks?: None household members: spouse housing: house current occupational exposures/hazards: Yes caffeine: No Have you lived/traveled outside [place] in past 30 days?: No Contact w/someone who lives/traveled outside US past 30 days?: No Exposure to someone with infectious disease in past 14 days?: No Do you have a fever (greater than 100.4 F or 38 C)?: No Have you tested positive for COVID-19?: No Exposed to someone with COVID-19 in past 14 days?: No Do you have a sore throat?: No Do you have a cough?: No Do you have any weakness?: No Are you experiencing any nausea/vomitting?: No Do you have any diarrhea?: No Are you experiencing any unusual bleeding?: No Do you have any muscle aches/pain?: No Do you have any abdominal pain?: No Are you experiencing loss of taste or smell?: No [facility] Anesthesia Checklist Patient Identification Patient Identification: Arm Band and Verbal (Name & ) Structural Data Admitted From: Home Planned Operative Procedure/s: Hysterectomy Consent for Planned Operative Procedure(s) Verified: Yes Verified Documents: Surgical Consent NPO Status Verified Time NPO: 00:00 Chart Verification Results Verified: CBC and BMP Additional verifications Anesthesia Reactions: No Hx Blood Transfusions: No Blood Transfusion Reaction: No Airway Assessment Mallampati Score:: Class II C-Spine Mobility Assessed: Yes TMJ Mobility Assessed: Yes Dentition: Good Dentition Neurological Assessment Level of Consciousness: Awake, Alert and Appropriate Hx Seizures: No Numbness or tingling in extremities: No Anesthesia Plan Anesthesia Risk discussed: Yes Anesthesia Plan: Verified ASA Class: II Anesthesia Type: General
[2025-01-21] MEDS: 0.9 % SODIUM CHLORIDE 100 ML 200 ML IV (07:21)
[2025-01-21] MEDS: METRONIDAZ/SOD CHL 500 MG/100 ML PIGGYBACK 100 MG IV (08:10)
[2025-01-21] MEDS: LIDOCAINE 1% W/EPI 1:100,000 20ML VIAL 20 ML (08:26)
--- NOTE | 2025-01-21 10:13 | EXP.OP.NOTE ---
Date of procedure: 01/21/25 Pre-op Diagnosis:: Pelvic pain, history of ablation, history of Essure tubal occlusion. Hematometra Post-op Diagnosis:: Same plus hematoma of the uterine cornua. Procedure performed:: Laparoscopically assisted vaginal hysterectomy, bilateral salpingectomy Surgeon:: Enrike Fung MD Document Control Supervisor(s):: Dr. Harp [employer]:: Barrett Patel Anesthesia: GETA Estimated blood loss (mL): 100 Clinical Note:: She is a 44-year-old lady who complains of lower abdominal pain. The pain was especially prominent on the right side. An ultrasound showed that she had a collection of fluid within the uterine cavity. We suspected that he he hematoMetra. After having discussed the risks and benefits we have to perform a laparoscopic-assisted vaginal hysterectomy and bilateral salpingectomy. Operative findings:: She had an anteverted bulky uterus. At the right cornua where there was a bulge that was consistent with a collection of blood. The tubes had previously been occluded with Essure. Both ovaries were seen and appear normal. The pelvis appeared normal. The upper abdomen appeared normal. Operative note:: She was taken to the operating room where general anesthesia was found be adequate. She was prepped and draped in normal sterile fashion in the semilithotomy position. A weighted speculum was placed in the vagina and the anterior lip of the cervix was grasped with a tenaculum. An acorn uterine manipulator was then placed within the cervical os. I then changed gloves. I injected 10 cc of 0.5% ropivacaine around the umbilicus and made a small incision within the umbilicus. I inserted a Veress needle into the abdominal cavity. The abdominal cavity was then insufflated with carbon dioxide gas to a pressure of 20 mmHg. I then inserted an 11 mm trocar under direct vision. I injected through and through the pubic hairline, made a small incision here and inserted a 5 mm trocar under direct vision. I identified the inferior epigastric arteries on the left side, went lateral to these and injected through and through. I then made a small incision and inserted an 11 mm trocar under direct vision. A similar 11 mm trocar was placed on the right side. The left round ligament was then grasped and cut through with harmonic scalpel. This was followed by opening up the peritoneum anteriorly to the midline. I then grasped the tube on the left side and cut through this. This is followed by cutting through the left utero-ovarian ligament. I used Harmonic scalpel on the coagulation mode. I then took down the posterior aspect of the broad ligament to the level of the uterosacral ligament. I then skeletonized the uterine arteries on the left side and placed hemoclips on these. Using the harmonic scalpel on coagulation mode adjacent to the cervix I then took down these uterine arteries. I then further freed up the bladder anteriorly and laterally on the left side. I then turned my attention to the right side where I grasped the right round ligament. I then cut through the right round ligament. I then took down the anterior peritoneum to the midline joining up with the other side. The right utero-ovarian ligament was then taken down with harmonic scalpel on coagulation mode. I further dissected the bladder off. The posterior aspect of the right broad ligament was then taken down with harmonic scalpel. I skeletonized the uterine arteries on the right side. I applied hemoclips to the uterine arteries and staying adjacent to the cervix on the right side I took down the uterine arteries with harmonic scalpel on coagulation mode. I further freed up the bladder. We then assured hemostasis. I then grasped the distal end of the right tube and using harmonic scalpel I cut along the mesosalpinx. The tube was removed through the 11 mm trocar site. This was only performed on the patient's left side. After once again assuring hemostasis we then turned our attention to the vaginal portion of the surgery. The patient was placed in the lithotomy position and a weighted speculum was placed in the vagina. The anterior and posterior lip of the cervix were grasped with Cronin tenacula. I then injected 20 cc of 1% Xylocaine with epinephrine circumferentially about the cervix. I then circumscribed the cervix. I opened up in the posterior cul-de-sac using Tijerina scissors. I then placed a long weighted speculum through the defect. The left uterosacral ligament was then clamped cut and suture-ligated and tagged. This was followed by the left cardinal ligament which was clamped cut and suture-ligated. I then clamped cut and suture-ligated and tagged the right uterosacral ligament. This was followed by the right cardinal ligament which was clamped cut and suture-ligated. I then grasped the anterior vaginal mucosa and using both sharp and blunt dissection dissected off the bladder. I then opened sharply into the anterior cul-de-sac. A Reeds retractor was placed through this defect. Both left and right uterine arteries were then clamped cut and suture-ligated. This freed up the uterus and it was removed through the vagina. I then inserted a short weighted speculum. Posterior cuff was then closed using running 2-0 Vicryl suture in a locked fashion. I then placed a Martin suture using 0 PDS. I passed it through the vagina and the peritoneum and then through the left perirectal fascia. I then plicated across the posterior peritoneum and through the right perirectal fascia. This was then passed through the peritoneum and vagina and left to be tied at the end. I then grasped the anterior peritoneum and using 2-0 PDS suture in a pursestring fashion I closed the peritoneum. The vaginal cuff was then closed using running 0 Vicryl suture in a locked fashion from left to right from anterior to posterior. A Patel cath was then placed in the bladder. Clear urine was seen to flow. I then changed gloves and once again insufflated the abdominal cavity with carbon dioxide gas. Hemostasis was once again assured and I rinsed the pelvis. I injected approximately 20 cc of 0.5% ropivacaine into the pelvis. I let the gas out of the abdomen and once again hemostasis was assured. The secondary trochars were then removed under direct vision and the sites were hemostatic. The primary trocar and camera were removed together. No bowel was seen to follow. The 11 mm trocar sites were closed deeply with [id number] 2-0 Vicryl suture followed by running subcuticular 4-0 Monocryl suture. 5 mm trocar site was closed with subcuticular 4-0 Monocryl suture. Sterile dressings were applied. The patient tolerated procedure well and was taken to the recovery room in excellent condition. All sponge instrument and needle counts were correct. The estimated blood loss was approximately 100 cc. Condition: stable Disposition: PACU Specimens:: Uterus and fallopian tubes Complications:: None
[2025-01-21] MEDS: HYDROMORPHONE 2MG/ML SYRINGE 0.5 MG IV (10:28)
--- NOTE | 2025-01-21 11:26 | HMH.PHAINT1 ---
Pharmacy Intervention Comments: MEDICATION RECONCILIATION COMPLETED ON PATIENT USING EXTERNAL FILL HISTORY FROM PHARMACY. -BRYANT COREA, [place]
[2025-01-21] MEDS: ACETAMINOPHEN 500MG TAB 1000 MG PO ×3 (11:37→22:38)
[2025-01-21] MEDS: LACTATED RINGERS 1000ML 1,000 ML 125 ML IV (11:41)
--- NOTE | 2025-01-21 11:54 | EXP.HP ---
History of Present Illness *Admission Date: 01/21/25 *Reason for visit:: Hematometra, pelvic pain, post ablation syndrome *History of present illness: She is a 44-year-old lady who complains of lower abdominal and pelvic pain. She had an ultrasound that showed a collection of blood within the uterine cavity post ablation. I suspect that she has discomfort as a result of this. She is offered laparoscopic-assisted vaginal hysterectomy and bilateral salpingectomy. [facility] Disclaimer: The information contained in this section may have been updated after the patient was seen, as this information can be updated by other users. Medical History Fatty liver disease, nonalcoholic Anxiety Abnormal vaginal bleeding Hemangioma Vascular neoplasm Anxiety Surgical History History of appendectomy Family History Family history of heart disease Family history of cancer Family history of diabetes mellitus Social History Smoking Status: Current every day smoker tobacco type: cigarettes packs per day: 1 second hand exposure: No alcohol intake: never substance use type: denies use current occupational status: employed Travel in the last 8 weeks?: None household members: spouse housing: house current occupational exposures/hazards: Yes caffeine: No Have you lived/traveled outside [place] in past 30 days?: No Contact w/someone who lives/traveled outside US past 30 days?: No Exposure to someone with infectious disease in past 14 days?: No Do you have a fever (greater than 100.4 F or 38 C)?: No Have you tested positive for COVID-19?: No Exposed to someone with COVID-19 in past 14 days?: No Do you have a sore throat?: No Do you have a cough?: No Do you have any weakness?: No Are you experiencing any nausea/vomitting?: No Do you have any diarrhea?: No Are you experiencing any unusual bleeding?: No Do you have any muscle aches/pain?: No Do you have any abdominal pain?: No Are you experiencing loss of taste or smell?: No Other Medical History Have you received the Flu Vaccine for this season: Yes Have you received the Pneumonia Vaccine: No Review of Systems Review of Systems Review of systems:: pertinent systems reviewed and negative unless documented below Meds Home Medications and Allergies Home Medications ?Medication ?Instructions ?Recorded ?Confirmed ?Type lactobacillus combination no.4 3 3,000 mmu cells PO DAILY 08/22/24 01/21/25 History billion cell capsule (Probiotic) milk thistle 150 mg capsule 150 mg PO BID 08/22/24 01/21/25 History polyethylene glycol 3350 17 17 g PO DAILY 08/22/24 01/21/25 History gram/dose oral powder (Miralax) red beet 500 mg capsule 500 mg PO DAILY 08/22/24 01/21/25 History turmeric 400 mg capsule 125 mg PO DAILY 08/22/24 01/21/25 History fluticasone propionate 50 1 spray intranasal DAILYP PRN 01/15/25 01/21/25 History mcg/actuation nasal allergies spray,suspension (Flonase Allergy Relief) ondansetron 4 mg disintegrating 4 mg PO TIDP PRN Nausea 01/15/25 01/21/25 History tablet New Prescriptions to Start Prescriptions: Allergies Allergy/AdvReac Type Severity Reaction Status Date / Time Sulfa (Sulfonamide AdvReac Unknown NA-NAUSEA Verified 01/21/25 06:39 Antibiotics) Exam Data for Last 24 hours Vital signs and Labs for Last 24 Hours: Temp Pulse Resp BP Pulse Ox O2 Del Method O2 Flow Rate 99.3 F 84 20 102/58 L 94 L Room Air 2 01/21/25 10:15 01/21/25 10:15 01/21/25 10:15 01/21/25 10:15 01/21/25 10:15 01/21/25 10:15 01/21/25 09:45 Laboratory Results - last 24 hr 01/21/25 07:30: Blood Type O Positive, Antibody Screen Negative I & O for Last 24 hours: Intake & Output 01/18/25 01/19/25 01/20/25 01/21/25 11:59 11:59 11:59 11:59 Intake Total 200 / 200 Output Total 50 / 50 Balance 150 / 150 Weight 196 lb Constitutional Constitutional: no acute distress *Routine HEENT Exam Head: Present normocephalic Eye: Present EOMI and PERRL ENT: Present mucous membranes moist *Routine Neck Exam Neck: Present supple; Absent lymphadenopathy *Routine Respiratory Exam Respiratory: Present CTA bilaterally *Routine Cardiovascular Exam Cardiovascular: Present RRR *Routine Abdominal Exam Abdominal: Present soft and normoactive bowel sounds; Absent tenderness *Routine Rectal Exam Rectal:: deferred *Routine Genitalia Exam Genitalia:: deferred *Routine Extremities Exam Extremities: Absent cyanosis, clubbing or edema *Routine Skin Exam Skin: Present warm; Absent rash *Routine Neurological Exam Neurological: Present alert and oriented X3 Assessment and Plan *Assessment and plan (1) Pelvic pain: Status: Acute Category: Medical Code(s): R10.2 - Pelvic and perineal pain (2) Uterine hypertrophy: Status: Acute Category: Medical Code(s): N85.2 - Hypertrophy of uterus (3) Hematometra: Status: Acute Category: Medical Code(s): N85.7 - Hematometra Plan She is admitted for laparoscopically assisted vaginal hysterectomy and bilateral salpingectomy.
[2025-01-21 13:02] LABS: Microscopic,Cath URINE MICROSCOPIC (MICROSCOPIC)
[2025-01-21] MEDS: OXYCODONE 5MG IMMEDIATE RELEASE TABLET 10 MG PO ×2 (13:20→18:24)
[2025-01-21 16:22] LABS: Hematocrit 35.8 % (37.0-47.0); Hemoglobin 12.0 g/dL (12.2-16.2)
[2025-01-21] MEDS: KETOROLAC 30MG/ML VIAL 30 MG IV ×2 (16:24→22:37)
--- NOTE | 2025-01-21 16:59 | EXP.ANES.I ---
[facility] Anesthesia Record Part I Anesthesia Record I Intake, IV Amount: 1,000 Hydration: Adequate Estimated blood loss (mL): 100 Urine output (mL): 50 Blood Products used (#): none Blood Pressure: 111/71 SaO2: 90 Pulse Rate: 97 Airway Patency: Patent Respiratory Rate: 18 Temperature: 99.3 F Patient is:: Drowsy and Stable Stable to PACU at:: 09:45
[2025-01-21 17:01] LABS: Appearance,Urine/Cath CLEAR (Clear); Bilirubin,Cath Negative (Negative); Blood, Urine/Cath Negative (Negative); Color,Urine/Cath YELLOW (Yellow); Glucose,Urine/Cath (UA) Negative (Negative); Ketones,Urine/Cath TRACE (Negative); Leukocyte Esterase,Cath Negative (Negative); Nitrate,Cath Negative (Negative); PH,Urine/Cath 5.0 (5.0-8.5); Protein,Urine/Cath Negative (Negative); Specific Gravity, Urine/Cath >= 1.030 (1.005-1.030); Urobilinogen,Cath 0.2 EU/dl (0.2)
--- NOTE | 2025-01-21 17:20 | PC.NURSE ---
Pt. up to bathroom. Pt. tolerated ambulating well with standby assist. Pt. voided 50ml. Pt. educated on drinking plenty of fluids, and voiding more. Pt. v/u.
[2025-01-21 21:02] LABS: RBC,Urine/Cath Occasional # /hpf (0-3); WBC,Urine/Cath Occasional #/hpf (0-3)
[2025-01-22] VITALS: BP 110/61; PULSE 63; RESP 16; TEMP 36.8
[2025-01-22 04:00] VITALS: BP 109/61; PULSE 61; RESP 16; TEMP 36.9; O2SAT 97
[2025-01-22] MEDS: ACETAMINOPHEN 500MG TAB 1000 MG PO (04:35)
[2025-01-22] MEDS: KETOROLAC 30MG/ML VIAL 30 MG IV (04:35)
[2025-01-22 06:01] LABS: Hematocrit 33.4 % (37.0-47.0); Hemoglobin 11.2 g/dL (12.2-16.2); Immature Granulocytes % 0.5 %; Mean Corpuscular HGB Conc 33.5 g/dL (31.8-35.4); Mean Corpuscular Hemoglobin 29.5 pg (27.0-31.2); Mean Corpuscular Volume 87.9 fl (81-99); Nucleated Red Blood Cells % 0 %; Platelet Count 320 K/mm3 (142-424); Red Blood Count 3.80 M/mm3 (4.20-5.40); Red Cell Distribution Width-SD 40.5 fL; White Blood Count 15.0 K/mm3 (4.8-10.8)
[2025-01-22 06:08] LABS: Chloride 98 mmol/L (98-107)
[2025-01-22 06:09] LABS: Potassium 3.7 mmoL/L (3.5-5.1); Sodium 126 mmol/L (136-145)
[2025-01-22 06:12] LABS: Anion Gap 9.7 mEq/L (5-15); Blood Urea Nitrogen 6 mg/dl (7-17); Calcium 7.6 mg/dl (8.4-10.2); Carbon Dioxide 22 mmol/L (22.0-30.0); Creatinine Clearance Estimated 255 mL/min (50-200); Creatinine,Serum 0.40 mg/dl (0.52-1.04); Estimated Glomerular Filt Rate 174 ml/min (>60); GFR (African American) 211 ML/MIN (>60); Glucose 107 mg/dl (74-100)
[2025-01-22 08:40] VITALS: BP 125/69; PULSE 64; RESP 17; TEMP 37; O2SAT 96
--- NOTE | 2025-01-22 08:41 | EXP.DC.SUM ---
General Admission date:: 01/21/25 Discharge date: 01/22/25 HPI HPI HPI: She is a 44-year-old lady who complains of lower abdominal and pelvic pain. She had an ultrasound that showed a collection of blood within the uterine cavity post ablation. I suspect that she has discomfort as a result of this. She is offered laparoscopic-assisted vaginal hysterectomy and bilateral salpingectomy. Hospital Course Hospital Course Hospital Course: On January 21, 2025 she underwent a laparoscopically assisted vaginal hysterectomy and bilateral salpingectomy. She has done well postoperatively and has remained afebrile without her hospitalization. She is eating and drinking and ambulating. She is voiding well. She has not had a bowel movement. She denies shortness of breath, chest pain or calf tenderness. She does say her left leg is tender in her thigh muscle and I suspect this may be as a result of being in stirrups for a short period of time. She denies any weakness in the left leg. She has no swelling in the left leg and no edema. There is no calf tenderness on palpation. She will be discharged home today to follow-up with me in approximately 2 weeks time. She will continue with her home medications. She was given a prescription for Percocet 5/325 number 20 tablets. She was given the usual instructions with respect to limiting her activity, driving and sexual activity. She was given instructions with respect to wound care. Her condition on discharge is stable and improved. Exam Data for Last 24 hours Vital signs and Labs for Last 24 Hours: Temp Pulse Resp BP Pulse Ox O2 Del Method O2 Flow Rate 98.5 F 61 16 109/61 L 97 Room Air 2 01/22/25 04:00 01/22/25 04:00 01/22/25 04:00 01/22/25 04:00 01/22/25 04:00 01/22/25 06:00 01/21/25 09:45 Laboratory Results - last 24 hr 01/21/25 09:21: Urine Color Yellow, Urine Appearance Clear, Urine pH 5.0, Ur Specific [place] >= 1.030, Urine Protein Negative, Urine Glucose (UA) Negative, Urine Ketones Trace, Urine Blood Negative, Urine Nitrate Negative, Urine Bilirubin Negative, Urine Urobilinogen 0.2, Ur Leukocyte Esterase Negative, Urine RBC Occasional, Urine WBC Occasional, Ur Squamous Epith Cells None, Urine Bacteria None 01/21/25 16:19: Hgb 12.0 L, Hct 35.8 L 01/22/25 05:37: WBC 15.0 H, RBC 3.80 L, Hgb 11.2 L, Hct 33.4 L, MCV 87.9, MCH 29.5, MCHC 33.5, RDW 12.5, Plt Count 320, MPV 10.1, Neut % (Auto) 75.3, Lymph % (Auto) 18.9, Rooks % (Auto) 5.1, Eos % (Auto) 0.1, Baso % (Auto) 0.1, Neut # (Auto) 11.3 H, Lymph # (Auto) 2.9, Rooks # (Auto) 0.8, Eos # (Auto) 0.0, Baso # (Auto) 0.0, Sodium 126 L, Potassium 3.7, Chloride 98, Carbon Dioxide 22, Anion Gap 9.7, BUN 6 L, Creatinine 0.40 L, Estimated Creat Clear 255, Estimated GFR 174, Est GFR ( Amer) 211, Glucose 107 H, Calcium 7.6 L I & O for Last 24 hours: Intake & Output 01/19/25 01/20/25 01/21/25 01/22/25 11:59 11:59 11:59 11:59 Intake Total 1200 / 1200 1735.417 / 1735.417 Output Total 50 / 50 2250 / 2250 Balance 1150 / 1150 -514.583 / -514.583 Weight 196 lb Constitutional Constitutional: no acute distress *Routine HEENT Exam Head: Present normocephalic *Routine Neck Exam Neck: Present full ROM *Routine Respiratory Exam Respiratory: Present normal respiratory effort; Absent accessory muscle use *Routine Cardiovascular Exam Cardiovascular: Present RRR *Routine Abdominal Exam Abdominal: Present soft; Absent tenderness or distended Comments: Is a and dry. *Routine Extremities Exam Extremities: Present full ROM; Absent cyanosis Comments: She complains of some left upper leg pain. She says it goes down into her leg. She denies any swelling in her leg. She denies any calf tenderness. Results Data Completed and Pending Labs on day of discharge: Labs from last 24 hours 01/22/25 01/21/25 01/21/25 05:37 16:19 09:21 WBC 15.0 H RBC 3.80 L Hgb 11.2 L 12.0 L Hct 33.4 L 35.8 L MCV 87.9 MCH 29.5 MCHC 33.5 RDW 12.5 Plt Count 320 MPV 10.1 Neut % (Auto) 75.3 Lymph % (Auto) 18.9 Rooks % (Auto) 5.1 Eos % (Auto) 0.1 Baso % (Auto) 0.1 Neut # (Auto) 11.3 H Lymph # (Auto) 2.9 Rooks # (Auto) 0.8 Eos # (Auto) 0.0 Baso # (Auto) 0.0 Sodium 126 L Potassium 3.7 Chloride 98 Carbon Dioxide 22 Anion Gap 9.7 BUN 6 L Creatinine 0.40 L Estimated Creat Clear 255 Estimated GFR 174 Est GFR ( Amer) 211 Glucose 107 H Calcium 7.6 L Urine Color Yellow Urine Appearance Clear Urine pH 5.0 Ur Specific [place] >= 1.030 Urine Protein Negative Urine Glucose (UA) Negative Urine Ketones Trace Urine Blood Negative Urine Nitrate Negative Urine Bilirubin Negative Urine Urobilinogen 0.2 Ur Leukocyte Esterase Negative Urine RBC Occasional Urine WBC Occasional Ur Squamous Epith Cells None Urine Bacteria None DS: Diagnosis Discharge Diagnosis (1) Pelvic pain: Status: Acute Code(s): R10.2 - Pelvic and perineal pain (2) Uterine hypertrophy: Status: Acute Code(s): N85.2 - Hypertrophy of uterus (3) Hematometra: Status: Acute Code(s): N85.7 - Hematometra Meds Home Medications and Allergies Home Medications ?Medication ?Instructions ?Recorded ?Confirmed ?Type lactobacillus combination no.4 3 3,000 mmu cells PO DAILY 08/22/24 01/21/25 History billion cell capsule (Probiotic) milk thistle 150 mg capsule 150 mg PO BID 08/22/24 01/21/25 History polyethylene glycol 3350 17 17 g PO DAILY 08/22/24 01/21/25 History gram/dose oral powder (Miralax) red beet 500 mg capsule 500 mg PO DAILY 08/22/24 01/21/25 History turmeric 400 mg capsule 125 mg PO DAILY 08/22/24 01/21/25 History fluticasone propionate 50 1 spray intranasal DAILYP PRN 01/15/25 01/21/25 History mcg/actuation nasal allergies spray,suspension (Flonase Allergy Relief) ondansetron 4 mg disintegrating 4 mg PO TIDP PRN Nausea 01/15/25 01/21/25 History tablet oxycodone-acetaminophen 5 mg-325 1 tab PO Q6H PRN pain #20 tabs 01/22/25 Rx mg tablet New Prescriptions to Start Prescriptions: oxycodone-acetaminophen Enrike Fung Allergies Allergy/AdvReac Type Severity Reaction Status Date / Time Sulfa (Sulfonamide AdvReac Unknown NA-NAUSEA Verified 01/21/25 06:39 Antibiotics) Discharge Plan Disposition Patient Disposition: Home, Self-Care Discharge Order Discharge Orders: Discharge Order (Routine); Ordered 01/22/25 Ordered By: Enrike Fung Follow up Plan Prescriptions/Medication Reconciliation: New oxycodone-acetaminophen 5-325 mg tablet 1 tab PO Q6H PRN (Reason: pain) Qty: 20 0RF Continued Probiotic 3 billion cell capsule 3,000 mmu cells PO DAILY Rx Instructions: administer with a meal turmeric 400 mg capsule 125 mg PO DAILY milk thistle 150 mg capsule 150 mg PO BID Rx Instructions: give with meal/snack red beet 500 mg capsule 500 mg PO DAILY polyethylene glycol 3350 [Miralax] 17 gram/dose powder 17 g PO DAILY ondansetron 4 mg tablet,disintegrating 4 mg PO TIDP PRN (Reason: Nausea) fluticasone propionate [Flonase Allergy Relief] 50 mcg/actuation spray,suspension 1 spray intranasal DAILYP PRN (Reason: allergies) Rx Instructions: administer into each nostril daily Problem Reconciliation Problems Reviewed?: Yes Patient Discharge Instructions ACTIVITY: No heavy lifting DIET: continue same diet Print Language: Faroese Providers Primary Care Provider: Tahir Pete Admjim Provider: Enrike Fung Attending Provider: Enrike Fung
[2025-01-22] MEDS: OXYCODONE 5MG IMMEDIATE RELEASE TABLET 10 MG PO (08:58)
[2025-01-22 13:44] VITALS: BP 102/58; PULSE 84; RESP 20; TEMP 37.4; O2SAT 94
--- NOTE | 2025-01-22 13:44 | EXP.ANES.II ---
[facility] Anesthesia Record Part II Anesthesia Record Part II Discharge Time: 10:15 Destination: Obstetric PACU nurse assessment reviewed?: Yes Patient Condition:: Good Anesthesia Complications:: None Swallowing reflex intact?: Yes Airway Patency: Patent Cyanosis?: No Blood Pressure: 102/58 SaO2: 94 Respiratory Rate: 20 Pulse Rate: 84 Temperature: 99.3 F Mental Status: Alert & Oriented Pain level:: 7 Nausea and/or vomitting:: None Intake, IV Amount: 0 Hydration: Adequate
== END 2025-01-22 09:45 | disposition home or self-care (01) | DRG 982 ==
LOC: OB 10:33
PROVIDERS: Admitting Provider Nurse Practitioner Obstetrics & Gynecology; PCP Internal Medicine Adolescent Medicine; Visit Provider Nurse Practitioner Obstetrics & Gynecology
PROC: 0UT9FZZ Resection of Uterus, Via Natural or Artificial Opening With Percutaneous Endoscopic Assistance (ICD-10-PCS; principal; 2025-01-21 07:30)
DX: N99.85 Post endometrial ablation syndrome (principal); N99.840 Postprocedural hematoma of a genitourinary system organ or structure following a genitourinary system procedure; N85.7 Hematometra; N85.2 Hypertrophy of uterus; F17.210 Nicotine dependence, cigarettes, uncomplicated; Y83.8 Other surgical procedures as the cause of abnormal reaction of the patient, or of later complication, without mention of misadventure at the time of the procedure; Z88.2 Allergy status to sulfonamides; Z79.899 Other long term (current) drug therapy
CPT/HCPCS: 36415; 51702; 80048; 81001; 85014; 85018; 85025; 86850; 96372; 96374; J0690; J1100; J1171; J1650; J1836; J1885; J2003; J2004; J2250; J2405; J2704; J2795; J3010; J7120

== ENCOUNTER 2025-01-30 09:51 | Outpatient (CLI) | payer BC, SELFPAY ==
--- NOTE | 2025-01-30 09:54 | XR_ITS ---
FINAL REPORT CLINICAL HISTORY: Evaluate left 5th toe Fracture COMPARISON: 01/01/2025 FINDINGS: LEFT FOOT Three views were obtained. Previously noted transverse fracture line at the base of the fifth metatarsal is faintly visible consistent with healing. No new fracture is identified. No acute soft tissue abnormality is seen. IMPRESSION: Healing fracture of the base of the fifth metatarsal. Reviewed, Interpreted and Dictated by Syd Castaneda MD Transcribed by Monica Laureano Authenticated and . [facility]
--- OUTSIDE RECORDS SUMMARY | 2025-01-30 10:18 | XMS_ITS | Clinical Summary ---
Author Organization [facility] Address [address] [place] [address] Phone Care Team Providers Care Buffer Copper Name Role Phone Tahir Pete MD Primary Care Provider [phone] Allergies Active Allergy Reactions Criticality Noted Date [...] Cancer Screening 2021 COVID-19 Vaccine ( - 2024-2 6 season) 2024 Influenza Vaccine (#1) 2024 0, 02/01/2018 DTaP/TDaP/Td (3 - Td or Tdap) 08/24/2026, 10/02/2011 Meningococcal B Vaccine Aged Out No l onger eligible based on patient's age to complete this topic Pneumococcal Vaccine 0-49 Aged Out No longer eligible based on patient's age to complete this topic Insurance OLIVIA PPO OLIVIA PPO Care Teams Buffer Copper Relationship Specialty Start Date End Date Tahir Pete MD [address] [place] [id number] PCP - General 10/01/09
== END 2025-01-30 23:59 | disposition home or self-care (01) ==
LOC: RAD 09:52
PROVIDERS: PCP Internal Medicine Adolescent Medicine; Visit Provider Podiatrist
DX: S92.355D Nondisplaced fracture of fifth metatarsal bone, left foot, subsequent encounter for fracture with routine healing (principal)
CPT/HCPCS: 73630